=== PATIENT | female | born 1965 | race Caucasian/White ===

== ENCOUNTER 2016-06-18 18:31 | Observation (INO) ==
--- NOTE | 2016-06-18 19:26 | Emergency Department Note ---
Disposition Clinical Impression: Anemia Disposition: Admitted As Inpatient Condition: Critical General Adult HPI - General Chief complaint: ED Recheck/Abnormal Lab/Rx Stated complaint: Low Hgb Time Seen by Provider: 06/18/16 18:55 Source: patient Limitations: no limitations Nursing Notes Reviewed: Yes Vital Signs Reviewed: Yes - History of Present Illness HPI Narrative: Mrs. Rodgers, 50-year-old female, presents from home by POV with chief complaint of abnormal labs. States she has low hemoglobin. Past medical history of end- stage renal disease on peritoneal dialysis. Patient also has a fistula in her left [place] left over from traditional dialysis prior to her current peritoneal regimen. Patient denies fever, chills, nausea, vomiting, chest pains , palpitations, abdominal pain, difficulty with urination, changes in bowel or bladder. She does admit to generalized weakness, increased fatigue, dyspnea with exertion. Past medical history: End-stage renal disease on peritoneal dialysis, hypertension, hyperlipidemia. 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 Pain Scale: 4 - Related Data Allergies Allergy/AdvReac Type Severity Reaction Status Date / Time diphenhydramine Allergy Unconscious Verified 06/18/16 21:16 [From Benadryl] All systems ED: reviewed and negative except as stated. Constitutional: Reports: weakness. Denies: fever, chills Cardiovascular: Reports: dyspnea on exertion. Denies: chest pain, palpitations , orthopnea, syncope Respiratory: Reports: dyspnea. Denies: cough, wheezes, hemoptysis, stridor Gastrointestinal: Denies: abdominal pain, nausea, vomiting, diarrhea, constipation, hematemesis, melena, hematochezia Genitourinary: Denies: urgency, dysuria, frequency Musculoskeletal: Denies: back pain Integumentary: Denies: rash Neurological: Reports: weakness. Denies: headache, numbness, paresthesias, confusion, abnormal gait, vertigo Past Medical History - Past Medical History Medical history: Reports: asthma, dialysis, GERD, hypertension, renal disease Psychiatric history: Reports: no psych history - Social History Smoking Status: Never smoker Smokeless Tobacco Status: No Alcohol use: Reports: none Drug use: Reports: none Physical Exam Vital signs reviewed and are stable. General: Patient is alert, oriented, and in no acute distress. Patient appears older than stated age. HEENT: No facial asymmetry. Head is normocephalic and atraumatic. Trachea midline. Cardiovascular: Heart regular rate and rhythm without clicks, rubs, gallops, or murmurs. No JVD. PMI nondisplaced. No pedal edema. Respiratory: Symmetric chest rise with good respiratory effort. Bilateral breath sounds are clear without wheezing, crackles, or rhonchi. Abdomen: Obese. Bowel sounds present normoactive x-4 quadrants. Abdomen is soft, nondistended, and nontender. Psych: Patient's affect is appropriate for situation. - General Limitations: no limitations General appearance: alert, in no apparent distress Course Course Narrative: We will repeat basic lab work with the addition of type and screen. Patient is able to 6.5. She will require 2 units transfusion. We will admit her for transfusion. Spoke with the patient's wax molder who agrees on the management of transfusion. Spoke with the hospitalist, Dr. Corrales, who agrees to accept the patient. Vital Signs Temperature 98.1 F 06/18/16 18:47 Pulse Rate 63 06/18/16 18:47 Respiratory Rate 16 06/18/16 18:47 Blood Pressure 127/89 06/18/16 18:47 O2 Sat by Pulse Oximetry 99 06/18/16 18:47 Temperature 98.1 F 06/18/16 21:47 Pulse Rate 72 06/18/16 21:45 Respiratory Rate 18 06/18/16 21:49 Blood Pressure 143/84 06/18/16 21:49 O2 Sat by Pulse Oximetry 96 06/18/16 21:45 Oxygen Delivery Oxygen Delivery Room Air Medical Decision Making - Lab Data Result diagrams: 06/18/16 19:29 06/18/16 19:29 Lab Results 06/18/16 06/18/16 06/18/16 Range/Units 19:29 19:29 19:29 WBC 7.6 (4.3-11.1) K/mcL RBC 2.02 L (3.82-4.97) M/mcL Hgb 6.5 L (11.5-15.4) g/dL Hct 19.8 L (35.3-44.9) % MCV 98.0 (83.0-100.0) fL MCH 32.2 (28.0-33.3) pg MCHC 32.8 (31.6-35.5) g/dL RDW 12.5 (11.5-14.5) % Plt Count 179 (140-400) K/mcL MPV 12.0 (9.4-12.4) fL Immature Gran % 0.7 (0-4) % Seg Neutrophils % 72.1 % Lymphocytes % 16.9 % Monocytes % 7.9 % Eosinophils % 2.1 % Basophils % 0.3 % Neutrophils # 5.5 (1.6-8.9) K/mcL Lymphocytes # 1.3 (0.6-4.6) K/mcL Monocytes # 0.6 (0.0-1.3) K/mcL Eosinophils # 0.2 (0.0-0.6) K/mcL Basophils # 0.0 (0.0-0.2) K/mcL Sodium 139 (136-145) mEq/L Potassium 3.7 (3.5-4.5) mEq/L Chloride 108 (98-109) mEq/L Carbon Dioxide 10 L* (19-29) mEq/L BUN 110 H (7-20) mg/dL Creatinine 18.84 H (0.57-1.11) mg/dL Est GFR ( Amer) 2 L (> 60) Est GFR (Non-Af Amer) 2 L (> 60) BUN/Creatinine Ratio 6 (6-26) Glucose 105 H (70-99) mg/dL Calculated Osmolality 323 H (280-300) Calcium 9.6 (8.6-10.8) mg/dL Troponin I (0-0.03) ng/mL Blood Type O POSITIVE Antibody Screen NEGATIVE Crossmatch See Detail 06/18/16 Range/Units 19:29 WBC (4.3-11.1) K/mcL RBC (3.82-4.97) M/mcL Hgb (11.5-15.4) g/dL Hct (35.3-44.9) % MCV (83.0-100.0) fL MCH (28.0-33.3) pg MCHC (31.6-35.5) g/dL RDW (11.5-14.5) % Plt Count (140-400) K/mcL MPV (9.4-12.4) fL Immature Gran % (0-4) % Seg Neutrophils % % Lymphocytes % % Monocytes % % Eosinophils % % Basophils % % Neutrophils # (1.6-8.9) K/mcL Lymphocytes # (0.6-4.6) K/mcL Monocytes # (0.0-1.3) K/mcL Eosinophils # (0.0-0.6) K/mcL Basophils # (0.0-0.2) K/mcL Sodium (136-145) mEq/L Potassium (3.5-4.5) mEq/L Chloride (98-109) mEq/L Carbon Dioxide (19-29) mEq/L BUN (7-20) mg/dL Creatinine (0.57-1.11) mg/dL Est GFR ( Amer) (> 60) Est GFR (Non-Af Amer) (> 60) BUN/Creatinine Ratio (6-26) Glucose (70-99) mg/dL Calculated Osmolality (280-300) Calcium (8.6-10.8) mg/dL Troponin I 0.04 H* (0-0.03) ng/mL Blood Type Antibody Screen Crossmatch
[2016-06-18 19:35] LABS: Basophils % 0.3 %; Eosinophils # 0.2 K/mcL (0.0-0.6); Eosinophils % 2.1 %; Hematocrit 19.8 % (35.3-44.9); Hemoglobin 6.5 g/dL (11.5-15.4); Immature Granulocytes % 0.7 % (0-4); Lymphocytes # 1.3 K/mcL (0.6-4.6); Lymphocytes % 16.9 %; Mean Corpuscular HGB Conc 32.8 g/dL (31.6-35.5); Mean Corpuscular Hemoglobin 32.2 pg (28.0-33.3); Monocytes # 0.6 K/mcL (0.0-1.3); Monocytes % 7.9 %; Neutrophils # 5.5 K/mcL (1.6-8.9); Platelet Count 179 K/mcL (140-400); Red Blood Count 2.02 M/mcL (3.82-4.97); Red Cell Distribution Width 12.5 % (11.5-14.5); Segmented Neutrophils % 72.1 %
[2016-06-18 19:48] LABS: Calcium 9.6 mg/dL (8.6-10.8); Potassium 3.7 mEq/L (3.5-4.5)
[2016-06-18] MEDS ORDERED: 0.9 % Sodium Chloride 250 ML ONE (21:06)
[2016-06-18] MEDS ORDERED: *HR* Morphine 2 MG/ML SYRINGE IVP PRN (21:49)
[2016-06-18] MEDS ORDERED: Naloxone 0.4 MG/ML INJ IVP PRN (21:49)
[2016-06-18] MEDS ORDERED: *HR* Promethazine 25 MG/ML VIAL IVP PRN (21:49)
[2016-06-18] MEDS ORDERED: Acetaminophen 325 MG TABLET PO PRN (21:49)
[2016-06-18] MEDS ORDERED: *HR* OxyCODONE Immed Rel 5 MG TABLET PO PRN (21:49)
[2016-06-18] MEDS ORDERED: Benzonatate 100 MG CAPSULE PO PRN (22:01)
[2016-06-19] MEDS ORDERED: 0.9 % Sodium Chloride 250 ML ONE (00:23)
[2016-06-19 03:26] VITALS: BP 144/81
--- NOTE | 2016-06-19 03:39 | Internal Med History&Physical ---
Date of Encounter: 06/18/16 Time of Encounter: 22:00 Assessment and Plan (1) Symptomatic anemia Status: Acute . (2) ESRD on peritoneal dialysis Status: Acute . (3) Anemia in ESRD (end-stage renal disease) Status: Acute . (4) Weakness generalized Status: Acute . (5) Metabolic acidosis with increased anion gap and accumulation of organic acids Status: Acute . (6) H/O kidney transplant Status: Chronic . (7) Type II diabetes mellitus Status: Chronic . Qualifiers: Diabetes mellitus complication status: with kidney complications Diabetes mellitus complication detail: with other kidney complication Diabetes mellitus chcf insulin use: unspecified chcf insulin use status Qualified Code(s): E11.29 - Type 2 diabetes mellitus with other diabetic kidney complication (8) Hypothyroidism Status: Chronic . Qualifiers: Hypothyroidism type: acquired Qualified Code(s): E03.9 - Hypothyroidism, unspecified (9) Obesity (BMI 30-39.9) Status: Chronic . (10) Hypertension Status: Chronic . Qualifiers: Hypertension type: essential hypertension Qualified Code(s): I10 - Essential (primary) hypertension (11) Dysfunctional uterine bleeding Status: Chronic . (12) Iron deficiency Status: Chronic . (13) Hyperosmolality due to uncontrolled type 1 diabetes mellitus Status: Chronic . Internal Medicine - H&P: HPI Chief complaint: Generalized weakness. Low hemoglobin. Admitted From: Emergency Dept Plans for Post Hospital Care: Home History of present illness: Ms. Rodgers is a 50 year old female with history significant for ESRD-peritoneal dialysis dependent, hypertension, type II DM, dyslipidemia, RAD/asthma, osteoathritis, osteopenia, GERD, hypothyroidism, DUB, anemia of chr dis, obesity , nonsmoker The patient was visited and interviewed and examined. Patient is admitted to [facility] via the emergency department she presents with reports of recently obtained laboratory studies showing a very low hemoglobin. She denies any symptomatic limitations or concerns. Is currently on traditional peritoneal dialysis and end-stage renal disease. He was instructed to come to the ED for evaluation and transfusion therapy. Findings in the ED: 98.1 pulse 60-74 respirations 16-18 BP 120-130/90. O2 saturation 97-99% room air. WBC 7.6 hemoglobin 6.5 hematocrit 19.8. Platelet count 179,000. Differential normal. Metabolic panel carbon dioxide 10 BUN 110 creatinine 18.84. GFR 2. Glucose 105 osmolality 323. PT 11.8 INR 1.1 PTT 40.1. Venous blood gas pH 7.49 PCO2 9 PCO2 [address] abdomen and pelvis demonstrates no acute intra-abdominal or intrapelvic process. Severely atrophy of [place] kidneys with right lower quadrant transplant kidney. No obvious CT scan abnormality of right lower quadrant transplant kidney identified. Peritoneal dialysis catheter noted. Advanced liver or spleen pancreas adrenal glands within normal limits. No free air or free fluid identified. Opacified small bowel grossly unremarkable. Obvious lymphadenopathy. Aorta normal in caliber with minor atherosclerotic calcifications. Uterus and adnexal structures grossly unremarkable. No acute osseous abnormalities identified. Preliminary impression suggest traumatic acute blood loss (dysfunctional uterine bleeding) on chronic anemia due to ESRD. Patient presents with impressive azotemia and metabolic acidosis inspite her claims of adherence to rule out daily continuous peritoneal dialysis. Reports by the patient treatment compliance cannot be validated. Further her claims of compliance with Aranesp therapy and periodic iron infusions cannot be validated. Her immediate needs will be addressed. Consultation will be requested of her nephrology team further input in her ongoing care. He should presents further risk for acute clinical decline and morbidity given this presenting sedative concerns and comorbidities. Workup and treatment will progress comprehensively. Cumulative laboratory and radiographic data base was reviewed, considered and discussed. Pertinent ancillary medical records including ECW and PCI documentation was reviewed and considered. Given the patient's presenting concerns, past medical history, clinical findings and symptoms, she is admitted at this time will undergo further evaluation and disposition. Orders were written as per the computerized physician food and beverage order clerk system.......................................................................... .................... Consultative opinions wwill be sought as clinical circumstances justify. Initial consultative opinion has been requested of nephrology/dialysis team. Pain management needs will be addressed. Laboratory and radiographic data base will be updated as appropriate. Studies include: Cultures of blood sputum, cardiac injury panel, BNP, pt, inr,aptt, metabolic and hematologic panel, magnesium, phosphorus, ionized calcium, thyroid panel ,lipid profile, A1c, C-peptide, CRP, sedimentation rate, blood gas , lactic acid, iron studies, B12, folate, UA, serologies, etc. Precautions: Aspiration, fall, delirium protocol/surveillance initiated. Telemetry with continuous hemodynamic monitoring and pulse oximetry initiated. Orthostatic vital signs. Type and cross for 2 units of packed red blood cells. Patient to be transfused to achieve a hemoglobin of 10. Empiric antibody coverage: Intravenous Rocephin and azithromycin pending culture data. Special studies: CT abd/pelvis, chest x-ray, telemetry, EKG. Pulmonary toilet: Incentive spirometry. Aerosol bronchodilator, mucolytic, antitussivePRN. Supplemental oxygen. Corticosteroid therapyPRN. CPAP/BiPAP supplemental oxygen deliveryPRN. Aerosol Mucomyst therapyPRN. Fluid and electrolyte repletion efforts will proceed. Careful attention to fluid balance and renal recovery will be emphasized. Avoidance of nephrotoxic exposure and adverse drug drug interaction in the setting of impaired renal function will be monitored closely. Acute coronary syndrome protocol/surveillance initiated. DVT and PUD prophylaxis initiated: PPI therapy, intermittent pneumatic cuffs. Subcutaneous heparin. Early ambulation will be encouraged. Immunization updates recommended. Influenza and pneumococcal vaccinations as part of ongoing preventative healthcare recommendations strongly recommended. Smoking cessation counseling briefly addressed. Patient is a nonsmoker. Advanced care directive discussion briefly addressed. Patient does not declare any healthcare restrictions at this time. Cardiovascular risk appraisal and cardiovascular risk reduction efforts will be emphasized. Physical and occupational therapy may be counseled to evaluate patient's functional capacity and progress mobility if her circumstances justify. Sliding scale insulin coverage, ADA/RENAL dietary restraint and schedule an as- needed basis fingerstick glucose assessments were initiated. Nutrition/ diabetes education counseling may be considered as circumstances justify. Outpatient medication schedules will be reviewed, confirmed and facilitated as appropriate. Reconciliation of home treatments including adjustments, substitutions and reintroduction into the treatment regimen will address necessary maintenance therapies for chronic pre-existing medical conditions. Plan of care has been reviewed and discussed in detail with the patient. Questions addressed. Hospital course dictated by clinical findings, treatment response and potential consultative interventions. Patient is at risk for further acute clinical decline and morbidity due to her presenting chief complaints and comorbid conditions. Condition is serious. Prognosis is guarded. CODE STATUS is full. Past Med Surg Social Fam HX - Past Medical History Source: old records reviewed Medical history: arthritis, asthma, diabetes, dialysis, GERD, hypertension, osteoporosis, renal disease, thyroid disease, other (Dysfunctional uterine bleeding. Anemia of chronic disease.) Psychiatric history: no psych history - Past Surgical History Surgical History: appendectomy, transplant (kidney), other, vascular surgery ( AV fistula placement. Peritoneal dialysis port placement.) - Social History Smoking Status: Never smoker Smokeless Tobacco Status: No Alcohol use: none Drug use: none Occupational status: unemployed Current living situation: With Family Activity Level: Independent ambulation, Mostly sedentary Recent Out of Country Travel Within the Last 8 Weeks: No Exposure or Possible Exposure to Illness During Travel: No Internal Medicine - H&P: Meds Aspirin [Lo-Dose Aspirin EC] 81 mg PO DAILY 06/19/16 [History] Ergocalciferol (VITAMIN D2) [Vitamin D2] 50,000 unit PO QWEEK 06/19/16 [History] Gemfibrozil [Lopid] 600 mg PO BID 06/19/16 [History] Omeprazole [PriLOSEC] 40 mg PO BID 06/19/16 [History] Ondansetron HCl [Zofran] 4 mg PO Q8H PRN 06/19/16 [History] Simvastatin [Zocor] 40 mg PO DAILY 06/19/16 [History] Sodium Bicarbonate 1,950 mg PO BID 06/19/16 [History] Allergies diphenhydramine [From Benadryl] Allergy (Verified 06/18/16 21:16) Unconscious patient states IV benadryl. All Systems PM: A 10-system review of systems was performed and is negative for pertinent findings except as documented above in the HPI. - Constitutional Constitutional: as per HPI, fatigue, malaise, weakness, no chills, no fever(s), no night sweats - EENT Eyes: as per HPI, no change in vision, no discharge, no pain, no photophobia Ears: as per HPI, no ear discharge, no ear pain, no tinnitus Nose, mouth and throat: as per HPI, no dysphagia, no nasal discharge, no neck pain, no sore throat - Cardiovascular Cardiovascular ROS IM: as per HPI, no chest pain, no diaphoresis, no dyspnea, no lightheadedness, no palpitations, no syncope - Respiratory Respiratory: as per HPI, dyspnea, dyspnea on exertion, no cough, no wheezing, no excessive phlegm production - Gastrointestinal Gastrointestinal: as per HPI, no abdominal pain, no diarrhea, no hematemesis, no hematochezia, no melena, no nausea, no vomiting - Genitourinary Genitourinary: as per HPI, no change in urinary stream, no dysuria, no flank pain, no hematuria Menstruation: as per HPI, other - Musculoskeletal Musculoskeletal ROS IM: as per HPI, no numbness, no tingling - Integumentary Integumentary IM: as per HPI, no rash, no unusual bruising - Neurological Neurological ROS: as per HPI, no confusion, no convulsions, no focal weakness, no numbness, no tingling, no tremor(s) - Psychiatric Psychiatric: as per HPI - Endocrine Endocrine IM: as per HPI - Hematologic/Lymphatic Hematologic/Lymphatic: as per HPI, no easy bruising - Allergic/Immunologic Allergic/Immunologic: as per HPI - Constitutional Vitals: Temp Pulse Resp BP Pulse Ox 97.8 F 75 16 144/81 92 L 06/19/16 03:10 06/19/16 03:10 06/19/16 03:10 06/19/16 03:10 06/19/16 03:05 General appearance: Present: cooperative, A&O X 3, no acute distress, obese, answers questions appropriately - Head Head exam: Present: atraumatic, normocephalic - Eye Eye exam: Present: EOMI, PERRL, conjuntiva pink, sclera anicteric Pupils: Present: normal accommodation, PERRL - ENT ENT exam: Present: mucous membranes moist, normal oropharynx - Neck Neck exam general surgery: Present: full ROM, supple, trachea midline. Absent: lymphadenopathy - Respiratory Respiratory exam: Present: decreased breath sounds, CTAB. Absent: accessory muscle use, rales, rhonchi, wheezes - Cardiovascular Cardiovascular exam: Present: distant heart sounds, RRR, +S1, +S2. Absent: diastolic murmur, gallop, rubs, systolic murmur - GI/Abdominal GI/Abdominal exam: Present: normal bowel sounds, soft, no peritoneal signs. Absent: distended, tenderness - Extremities Exam Extremities exam: Present: full ROM, warm, radial pulses palpable and symetrical. Absent: calf tenderness, cyanotic, pedal edema - Neurological Exam Neurological exam: Present: alert, CN II-XII intact, oriented X3, no focal deficits. Absent: pronater drift, facial droop, speech deficit - Psychiatric Psychiatric exam: Present: normal affect, normal mood - Skin Skin exam: Present: dry, intact, warm Internal Med - H&P Results - Labs CBC & Chem 7: 06/19/16 06:11 06/19/16 06:11 - Impressions Vital Signs Temp Pulse Resp BP Pulse Ox 06/19/16 03:10 97.8 F 75 16 144/81 06/19/16 03:05 97.8 F 66 18 144/81 92 L 06/19/16 01:07 98.4 F 68 18 120/79 95 06/19/16 00:43 98.4 F 68 16 120/79 06/19/16 00:33 98.2 F 61 16 124/76 06/19/16 00:31 98.2 F 61 18 96 06/18/16 23:22 98.2 F 61 18 124/76 96 06/18/16 21:49 18 143/84 06/18/16 21:47 98.1 F 06/18/16 21:45 72 18 138/83 96 06/18/16 21:40 70 18 139/85 06/18/16 21:32 98.4 F 65 18 139/89 06/18/16 20:12 74 18 130/90 97 06/18/16 18:47 98.1 F 63 16 127/89 99 Intake and Output 06/18/16 06/18/16 06/19/16 15:59 23:59 07:59 Intake Total 0 / 0 900 / 900 Balance 0 / 0 900 / 900 Intake: Blood Product 0 / 0 900 / 900 Rbcs Leuko Poor As-1 0 / 0 300 / 300 Unit [id number] Rbcs Leuko Poor As-1 600 / 600 Unit [id number] Other: Weight 94.2 kg 93.894 kg Patient Weight 06/19/16 23:59 Weight 93.894 kg Short CBC 06/18/16 Range/Units 19:29 WBC 7.6 (4.3-11.1) K/mcL Hgb 6.5 L (11.5-15.4) g/dL Hct 19.8 L (35.3-44.9) % Plt Count 179 (140-400) K/mcL Neutrophils # 5.5 (1.6-8.9) K/mcL BMP 06/18/16 Range/Units 19:29 Sodium 139 (136-145) mEq/L Potassium 3.7 (3.5-4.5) mEq/L Chloride 108 (98-109) mEq/L Carbon Dioxide 10 L* (19-29) mEq/L BUN 110 H (7-20) mg/dL Creatinine 18.84 H (0.57-1.11) mg/dL Glucose 105 H (70-99) mg/dL Calcium 9.6 (8.6-10.8) mg/dL Cardiac Enzymes 06/18/16 Range/Units 19:29 Troponin I 0.04 H* (0-0.03) ng/mL Abnormal lab results RBC 2.02 M/mcL (3.82-4.97) L 06/18/16 19:29 Hgb 6.5 g/dL (11.5-15.4) L 06/18/16 19:29 Hct 19.8 % (35.3-44.9) L 06/18/16 19:29 Carbon Dioxide 10 mEq/L (19-29) L* 06/18/16 19:29 BUN 110 mg/dL (7-20) H 06/18/16 19:29 Creatinine 18.84 mg/dL (0.57-1.11) H 06/18/16 19:29 Est GFR ( Amer) 2 (> 60) L 06/18/16 19:29 Est GFR (Non-Af Amer) 2 (> 60) L 06/18/16 19:29 Glucose 105 mg/dL (70-99) H 06/18/16 19:29 Calculated Osmolality 323 (280-300) H 06/18/16 19:29 Troponin I 0.04 ng/mL (0-0.03) H* 06/18/16 19:29 Allergies Allergy/AdvReac Type Severity Reaction Status Date / Time diphenhydramine Allergy Unconscious Verified 06/18/16 21:16 [From Benadryl] Laboratory Results WBC 7.6 K/mcL (4.3-11.1) 06/18/16 19:29 RBC 2.02 M/mcL (3.82-4.97) L 06/18/16 19:29 Hgb 6.5 g/dL (11.5-15.4) L 06/18/16 19:29 Hct 19.8 % (35.3-44.9) L 06/18/16 19:29 MCV 98.0 fL (83.0-100.0) 06/18/16 19:29 MCH 32.2 pg (28.0-33.3) 06/18/16 19: MCHC 32.8 g/dL (31.6-35.5) 06/18/16 19: RDW 12.5 % (11.5-14.5) 06/18/16 19:29 Plt Count 179 K/mcL (140-400) 06/18/16 19: MPV 12.0 fL (9.4-12.4) 06/18/16 19: Immature Gran % 0.7 % (0-4) 06/18/16 19: Seg Neutrophils % 72.1 % 06/18/16 19: Lymphocytes % 16.9 % 06/18/16 19:29 Monocytes % 7.9 % 06/18/16 19:29 Eosinophils % 2.1 % 06/18/16 19: Basophils % 0.3 % 06/18/16 19:29 Neutrophils # 5.5 K/mcL (1.6-8.9) 06/18/16 19: Lymphocytes # 1.3 K/mcL (0.6-4.6) 06/18/16 19: Monocytes # 0.6 K/mcL (0.0-1.3) 06/18/16 19: Eosinophils # 0.2 K/mcL (0.0-0.6) 06/18/16 19:29 Basophils # 0.0 K/mcL (0.0-0.2) 06/18/16 19:29 Sodium 139 mEq/L (136-145) 06/18/16 19:29 Potassium 3.7 mEq/L (3.5-4.5) 06/18/16 19: Chloride 108 mEq/L (98-109) 06/18/16 19:29 Carbon Dioxide 10 mEq/L (19-29) L* 06/18/16 19:29 BUN 110 mg/dL (7-20) H 06/18/16 19:29 Creatinine 18.84 mg/dL (0.57-1.11) H 06/18/16 19:29 Est GFR ( Amer) 2 (> 60) L 06/18/16 19:29 Est GFR (Non-Af Amer) 2 (> 60) L 06/18/16 19:29 BUN/Creatinine Ratio 6 (6-26) 06/18/16 19:29 Glucose 105 mg/dL (70-99) H 06/18/16 19:29 Calculated Osmolality 323 (280-300) H 06/18/16 19:29 Calcium 9.6 mg/dL (8.6-10.8) 06/18/16 19:29 Troponin I 0.04 ng/mL (0-0.03) H* 06/18/16 19:29 Blood Type O POSITIVE 06/18/16 19:29 Antibody Screen NEGATIVE 06/18/16 19:29 Crossmatch See Detail 06/18/16 19:29
[2016-06-19] MEDS: Sodium Bicarbonate 150 MEQ in D5% in Water 1,000 ML IVC SCH ×2 (03:51→10:11)
[2016-06-19] MEDS ORDERED: *HR* Heparin 5,000 UNIT/ML VIAL SQ SCH (06:00)
[2016-06-19 06:30] LABS: Hematocrit 25.5 % (35.3-44.9); Hemoglobin 8.3 g/dL (11.5-15.4)
[2016-06-19 06:38] LABS: VBG HCO3 6.9 mEq/L (21-27); VBG PH 7.49 pH Units (7.32-7.42)
[2016-06-19 06:39] LABS: INR 1.1; Prothrombin Time 11.8 Seconds (9.4-12.1)
[2016-06-19 06:42] LABS: Activated Partial Thrombo Time 40.1 Seconds (26.0-36.0)
[2016-06-19 06:48] LABS: Albumin 3.6 g/dL (3.5-5.0); Beta-Hydroxybutyric Acid 0.24 mmol/L (0.02-0.27); Bilirubin,Direct 0.2 mg/dL (0.0-0.5); Bilirubin,Indirect 0.3 mg/dL (0.0-1.2); Bilirubin,Total 0.5 mg/dL (0.2-1.2); Calcium 9.4 mg/dL (8.6-10.8); Chol/HDL Ratio 6.3 (0-4.9); Globulin 3.7 g/dL (2.4-3.5); Magnesium 2.2 mg/dL (1.6-2.6); Potassium 3.5 mEq/L (3.5-4.5); Total Protein 7.3 g/dL (6.0-8.3)
[2016-06-19 06:53] LABS: Ionized Calcium 1.18 mmol/L (1.15-1.35)
[2016-06-19 07:08] LABS: Thyroid Stimulating Hormone 2.894 mcIU/mL (0.350-4.840)
--- NOTE | 2016-06-19 13:15 | Nephrology Consult Note ---
Date of Encounter: 06/19/16 Time of Encounter: 13:11 Assessment and Plan (1) ESRD on peritoneal dialysis Current Visit: Yes Status: Acute Does not have any uremic symptoms or signs. Would like to go home today d/w Dr. Ansari, pt has been noncompliant with PD. Informed the need for doing PD as instructed. Metabolic acidosis; takes bicard supplements at home but not sure of the dose Hyperphosphatemia; phosphate binders were recently increased couple of days ago at the clinic visit Anemia of chronic disease; gets Aranesp as outpatient and the dose was increased last week. Has appointment to see GI physician in the next few days for colorectal screening She takes about 30 pills as outpatient but is not sure of the dose. [facility] pharmacy to fax her recent medical list. History of Present Illness - Reason for Consult end stage renal disease - Chief Complaint ESRD, abnormal lab values - History of Present Illness 50 years old female with history of HTN, hyperlipidemia, GERD, hypothyroidism and ESRD She was sent to ER yesterday as outpatient HB was low at 6.5. Vital signs were stable. He received 2 units of packed RBCs last night. Labs sig for BUN 110, creatinine 19 bicarbonate 9, Calcium 9.4 and phosphate level. IV bicarbonate was ordered last night but patient refused. She would like to go home today Patient was on hemodialysis for about couple of years, subsequently had renal transplant which lasted for about 5 years, lately on PD for about 2-3 years Seen in PD clinic couple of days ago. Admits to being compliant with 4 manual exchanges as prescribed. Past Med Surg Social Fam HX - Past Medical History Medical history: arthritis, asthma, diabetes (States that she does not have diabetes), dialysis, GERD, hypertension, osteoporosis, renal disease, thyroid disease, other (Dysfunctional uterine bleeding. Anemia of chronic disease.) Psychiatric history: no psych history - Past Surgical History Surgical History: appendectomy, transplant (kidney), other, vascular surgery ( AV fistula placement. Peritoneal dialysis port placement.) - Social History Smoking Status: Never smoker Smokeless Tobacco Status: No Alcohol use: none Drug use: none Current living situation: With Family (Lives with spouse and son) - Additional Family History Additional family history: Mom is healthy and doing well father had from complications of Alzheimer's dementia Medications and Allergies Aspirin [Lo-Dose Aspirin EC] 81 mg PO DAILY 06/19/16 [History] Ergocalciferol (VITAMIN D2) [Vitamin D2] 50,000 unit PO QWEEK 06/19/16 [History] Gemfibrozil [Lopid] 600 mg PO BID 06/19/16 [History] Omeprazole [PriLOSEC] 40 mg PO BID 06/19/16 [History] Ondansetron HCl [Zofran] 4 mg PO Q8H PRN 06/19/16 [History] Simvastatin [Zocor] 40 mg PO DAILY 06/19/16 [History] Sodium Bicarbonate 1,950 mg PO BID 06/19/16 [History] Allergies diphenhydramine [From Benadryl] Allergy (Verified 06/18/16 21:16) Unconscious patient states IV benadryl. Review of Systems All Systems review (narrative): Continues to make urine. Denies nausea vomiting or insomnia States that she feels pretty well, would like to go home today Exam - Vital Signs Vital signs: Initial Vital Signs Temp Pulse Resp BP Pulse Ox 98.1 F 63 16 127/89 99 06/18/16 18:47 06/18/16 18:47 06/18/16 18:47 06/18/16 18:47 06/18/16 18:47 Intake and Output 06/18/16 06/19/16 06/19/16 23:59 07:59 15:59 Intake Total 900 / 900 Balance 900 / 900 Intake: Blood Product 900 / 900 Rbcs Leuko Poor As-1 300 / 300 Unit [id number] Rbcs Leuko Poor As-1 600 / 600 Unit [id number] Other: Weight 94.2 kg 93.894 kg Patient Weight 06/19/16 23:59 Weight 93.894 kg - General Appearance Exam: HENT; PERRL, pallor present, no icterus Neck; no JVD no lymphadenopathy or carotid bruit CVS; s1s2 present, regular, no murmurs RESP; good air entry, clear to auscultation ABD; soft, NT, BS present, no organomegaly, no bruits EXT; no edema, DP pulses palpable. 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
--- NOTE | 2016-06-19 13:56 | Discharge Summary ---
Date of Encounter: 06/19/16 Time of Encounter: 13:53 - Discharge Diagnosis (1) Anemia in ESRD (end-stage renal disease) Priority: Primary Status: Acute (2) ESRD on peritoneal dialysis Priority: Secondary Status: Acute - Discharge Medications Home Medications: Aspirin [Lo-Dose Aspirin EC] 81 mg PO DAILY 06/19/16 [History] Ergocalciferol (VITAMIN D2) [Vitamin D2] 50,000 unit PO QWEEK 06/19/16 [History] Gemfibrozil [Lopid] 600 mg PO BID 06/19/16 [History] Omeprazole [PriLOSEC] 40 mg PO BID 06/19/16 [History] Ondansetron HCl [Zofran] 4 mg PO Q8H PRN 06/19/16 [History] Simvastatin [Zocor] 40 mg PO DAILY 06/19/16 [History] Sodium Bicarbonate 1,950 mg PO BID 06/19/16 [History] Allergies/Adverse Reactions: Allergies diphenhydramine [From Benadryl] Allergy (Verified 06/18/16 21:16) Unconscious patient states IV benadryl. Date of admission: 06/18/16 21:29 Primary care physician: PCP NO Consults: 06/19/16 07:00 Consult to Dialysis [CONS] ONCE 06/19/16 08:00 Consult to Physician [CONS] Routine Consulting Provider: Chadwick Ansari Reason for Consult: ESRD on peritoneal dialysis presents w/ generalized weakness and labs finding hgb 6.5 Cr 18.8 Bun 110. Please evaluate and advise. Time Notified: 21:58 Call Completed: Yes Discharging clinician: Chuck Quintero Anticipated date of discharge: 06/19/16 - Patient Status Disposition: Home, Self-Care Condition: Critical Functional capacity at discharge: independent ambulation Overall status at discharge: patient is back to baseline - Discharge Instructions Follow Up With: Unassigned,Provider [Non-Partnered Physician] - Additional Instructions: Follow up with pcp. Follow up with nephrology. Continue with peritoneal dialysis. - Diet and Activity Activity: increase activity as tolerated Diet: other (renal diet) Interval History: Mrs. Rodgers, 50-year-old female, presents from home by POV with chief complaint of abnormal labs. States she has low hemoglobin. Past medical history of end- stage renal disease on peritoneal dialysis. Patient also has a fistula in her left Robbin left over from traditional dialysis prior to her current peritoneal regimen. Patient denies fever, chills, nausea, vomiting, chest pains , palpitations, abdominal pain, difficulty with urination, changes in bowel or bladder. She does admit to generalized weakness, increased fatigue, dyspnea with exertion. Past medical history: End-stage renal disease on peritoneal dialysis, hypertension, hyperlipidemia. Hospital course: Ms. Rodgers is a 50 year old female admitted due to severe symptomatic anemia in setting of a patient with underlying ESRD on PD. She received 2 units of prbc overnight and is feeling better. No signs of fluid overload, no hyperkalemia, no pneumonia. No signs of infection. Evaluated by nephrology. 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 She has mild elevation of cardiac biomarkers, without chest pain. No ACS. likely elevation of trops in setting of anemia and ESRD. She has prescriptions for home meds including sodium bicarb pills. D/W patient. She voiced her desire of going home and was even told that she could go home after the transfusion. Patient will be discharged home and will continue with her home meds. - Time Spent with Patient Total time spent providing and/or coordinating discharge services: Greater than 30 minutes - Constitutional Vitals: Temp Pulse Resp BP Pulse Ox 97.8 F 75 16 144/81 92 L 06/19/16 03:10 06/19/16 03:10 06/19/16 03:10 06/19/16 03:10 06/19/16 03:05 General appearance: Present: cooperative, A&O X 3, no acute distress, obese, answers questions appropriately Exam: alert, oriented, not in distress. - Head Head exam: Present: atraumatic, normocephalic - Eye Eye exam: Present: PERRL, conjuntiva pink, sclera anicteric Pupils: Present: PERRL - Neck Neck exam general surgery: Present: supple, trachea midline. Absent: lymphadenopathy - Respiratory Respiratory exam: Present: CTAB. Absent: accessory muscle use, rales, rhonchi, wheezes - Cardiovascular Cardiovascular exam: Present: RRR, +S1, +S2. Absent: diastolic murmur, gallop, rubs, systolic murmur - GI/Abdominal GI/Abdominal exam: Present: normal bowel sounds, soft, no peritoneal signs. Absent: distended, tenderness - Extremities Exam Extremities exam: Present: warm, radial pulses palpable and symetrical. Absent : calf tenderness, cyanotic, pedal edema - Neurological Exam Neurological exam: Present: CN II-XII intact, oriented X3, no focal deficits. Absent: pronater drift, facial droop, speech deficit - Skin Skin exam: Present: dry, intact
== END 2016-06-19 14:41 | disposition home or self-care (01) ==
LOC: 2ANU 18:31 → EMEROO 18:31 → 2ANU 22:35
PROVIDERS: ADMIT Family Medicine; ATTEND Internal Medicine

== ENCOUNTER 2018-07-31 13:22 | Inpatient (IN) ==
--- NOTE | 2018-07-31 14:27 | Emergency Department Note ---
Disposition Clinical Impression: Acute kidney injury superimposed on chronic kidney disease, Uremia Anemia Qualifiers: Anemia type: unspecified type Qualified Code(s): D64.9 - Anemia, unspecified Disposition: Admitted As Inpatient Condition: Fair Referrals: NONE,PCP [Primary Care Provider] - Forms: ED Satisfaction Letter, Work/School Release Time of Disposition: 15:40 General Adult HPI - General Chief complaint: ED General Medical Stated complaint: Needs Port Time Seen by Provider: 07/31/18 13:32 Source: patient Mode of arrival: ambulatory Limitations: no limitations Nursing Notes Reviewed: Yes Vital Signs Reviewed: Yes - History of Present Illness HPI Narrative: 52-year-old female with history of hypertension, end-stage renal disease currently on PD presents for evaluation from the dialysis clinic for concerns of uremia. Patient was seen in for admission for permacath placement HD. Patient follows Dr. Booker carrasquillo. Patient states she has had a cough but denying any chest pain or dyspnea. Patient has abdominal pain or nausea vomiting. Patient states she does produce some urine. No fevers. Patient states that she is alternated between HD and PD in the past. Pain Scale: 5 - Related Data Home Medications Medication Instructions Recorded Confirmed Aspirin [Lo-Dose Aspirin EC] 81 mg PO DAILY 06/19/16 07/31/18 Gemfibrozil [Lopid] 600 mg PO BID 06/19/16 07/31/18 Omeprazole [PriLOSEC] 40 mg PO BID 06/19/16 07/31/18 Simvastatin [Zocor] 40 mg PO DAILY 06/19/16 07/31/18 Sodium Bicarbonate 1,950 mg PO BID 06/19/16 07/31/18 amLODIPine [Norvasc] 5 mg PO BID 07/21/18 07/31/18 hydrALAZINE [HydrALAZINE] 25 mg PO BID 07/21/18 07/31/18 Albuterol Sulfate [Albuterol 0 puff IH Q4HR PRN 07/31/18 07/31/18 Inhaler] Budesonide/Formoterol 80/4.5 2 puff IH BID 07/31/18 07/31/18 [Symbicort 80/4.5] Calcium Carbonate [Tums] 1,500 mg PO TIDWM 07/31/18 07/31/18 Cholecalciferol (D-3) [Vitamin D] 5,000 unit PO QWEEK 07/31/18 07/31/18 Cinacalcet HCl [Sensipar] 60 mg PO DAILY 07/31/18 07/31/18 Dicyclomine [Bentyl] 10 mg PO TID 07/31/18 07/31/18 FLUoxetine HCl [Prozac] 40 mg PO DAILY 07/31/18 07/31/18 Furosemide [Lasix] 40 mg PO DAILY 07/31/18 07/31/18 Levothyroxine [Synthroid] 88 mcg PO 0630 07/31/18 07/31/18 Metoclopramide [Reglan] 10 mg PO TID 07/31/18 07/31/18 Metoprolol Succinate [Toprol Xl] 25 mg PO DAILY 07/31/18 07/31/18 Sucralfate [Carafate] 1 gm PO TIDAC 07/31/18 07/31/18 Vitamin B Complex [Balanced B-50] 1 each PO DAILY 07/31/18 07/31/18 Allergies Allergy/AdvReac Type Severity Reaction Status Date / Time diphenhydramine Allergy Unconscious Verified 07/31/18 13:43 [From Benadryl] All systems ED: reviewed and negative except as stated. Constitutional: Denies: fever Cardiovascular: Denies: chest pain Respiratory: Reports: cough. Denies: dyspnea Gastrointestinal: Denies: abdominal pain, nausea, vomiting Past Medical History - Past Medical History Source: patient Medical history: Reports: arthritis, asthma, diabetes, dialysis, GERD, hypertension, osteoporosis, renal disease, thyroid disease, other Surgical history: Reports: appendectomy, transplant, other, vascular surgery Psychiatric history: Reports: no psych history - Social History Smoking Status: Never smoker Smokeless Tobacco Status: No Alcohol use: Reports: none Drug use: Reports: none Physical Exam - General Limitations: no limitations General appearance: alert, in no apparent distress - Head Head exam: atraumatic, normocephalic, normal inspection - Eye Eye exam: Present: normal appearance, PERRL, EOMI - ENT ENT exam: normal exam - Neck Neck exam: Present: normal inspection - Chest Chest inspection: Present: normal inspection, symmetric chest wall rise - Respiratory Respiratory exam: Present: wheezes. Absent: respiratory distress, accessory muscle use - Cardiovascular Cardiovascular exam: Present: regular rate, normal rhythm. Absent: systolic murmur - Abdominal Exam Abdominal exam: Present: soft, Non-Tender. Absent: guarding, rebound - Extremities Exam Extremities exam: Present: normal inspection, pedal edema (2) - Back Exam Back exam: Present: normal inspection - Neurological Exam Neurological exam: Present: alert, oriented X3, CN II-XII intact - Expanded Neurological Exam Patient oriented to: Present: person, place, time Motor strength - LUE: 5/5 Motor strength - RUE: 5/5 Motor strength - LLE: 5/5 Motor strength - RLE: 5/5 Coma Scale Eye Opening: Spontaneous Coma Scale Motor Response: Obeys Commands Coma Scale Verbal Response: Oriented Coma Scale Total: 15 - Skin Skin exam: Present: warm, dry, intact, normal color Course Course Narrative: Patient will get basic labs, urinalysis, chest x-ray and admission with IR consult and nephrology consult. - Consultations Consultation #1: Spoke with IR regarding permacath Time: 14:57 Vital Signs Temperature 98.0 F 07/31/18 13:43 Pulse Rate 91 07/31/18 13:43 Respiratory Rate 15 07/31/18 13:43 Blood Pressure 160/97 07/31/18 13:43 O2 Sat by Pulse Oximetry 94 07/31/18 13:43 Temperature 98.0 F 07/31/18 13:43 Pulse Rate 91 07/31/18 13:43 Respiratory Rate 15 07/31/18 13:43 Blood Pressure 160/97 07/31/18 13:43 O2 Sat by Pulse Oximetry 94 07/31/18 13:43 Oxygen Delivery Oxygen Delivery Room Air Medical Decision Making - [facility] Narrative Medical decision making narrative: Patient presented for concerns of worsening kidney disease. Patient does not meet criteria for emergent dialysis. IR is aware the patient's need for line placement. Patient did get basic labs. Did discuss the case with nephrology will also follow the patient. Patient's abdomen is nontender. Low concerns for any SBP. Patient's chest x-rays clinically unremarkable. - Lab Data Lab results reviewed: Yes I reviewed the patient's lab results. Result diagrams: 07/31/18 14:37 07/31/18 14:04 Lab Results 07/31/18 07/31/18 07/31/18 Range/Units 14:04 14:05 14:19 WBC (4.3-11.1) K/mcL RBC (3.82-4.97) M/mcL Hgb (11.5-15.4) g/dL Hct (35.3-44.9) % MCV (83.0-100.0) fL MCH (28.0-33.3) pg MCHC (31.6-35.5) g/dL RDW (11.5-14.5) % Plt Count (140-400) K/mcL MPV (9.4-12.4) fL Immature Gran % (0-4) % Seg Neutrophils % % Lymphocytes % % Monocytes % % Eosinophils % % Basophils % % Neutrophils # (1.6-8.9) K/mcL Lymphocytes # (0.6-4.6) K/mcL Monocytes # (0.0-1.3) K/mcL Eosinophils # (0.0-0.6) K/mcL Basophils # (0.0-0.2) K/mcL PT 12.7 H (9.4-12.1) Seconds INR 1.1 Sodium 143 (136-145) mEq/L Potassium 4.2 (3.5-5.1) mEq/L Chloride 96 L (98-107) mEq/L Carbon Dioxide 23 (23-29) mEq/L BUN 81 H (6-20) mg/dL Creatinine 19.09 H (0.60-1.20) mg/dL Est GFR ( Amer) 2 L (> 60) Est GFR (Non-Af Amer) 2 L (> 60) BUN/Creatinine Ratio 4 L (6-26) Glucose 109 H (70-105) mg/dL Calculated Osmolality 321 H (280-300) Lactic Acid (0.5-2.2) mmol/L Calcium 7.9 L (8.6-10.3) mg/dL Phosphorus 12.9 H (2.7-4.5) mg/dL Magnesium 2.0 (1.6-2.6) mg/dL Total Bilirubin 0.4 (0.3-1.0) mg/dL Direct Bilirubin 0.0 (0.0-0.2) mg/dL Indirect Bilirubin 0.4 (0.0-1.2) mg/dL AST 18 (13-39) Units/L ALT 15 (7-52) Units/L Alkaline Phosphatase 75 (34-104) Units/L Serum Total Protein 6.6 (6.4-8.9) g/dL Albumin 3.8 (3.5-5.7) g/dL Globulin 2.8 (2.4-3.5) g/dL Albumin/Globulin Ratio 1.4 (1.1-2.2) Lipase 37 (11-82) Units/L Urine Color (Yellow) Urine Clarity (Clear) Urine pH (5.0-8.0) pH Units Ur Specific [place] (1.010-1.025) Urine Protein (Neg-Trace) mg/dL Urine Glucose (UA) (Normal) mg/dL Urine Ketones (Negative) mg/dL Urine Blood (Negative) Urine Nitrite (Negative) Urine Bilirubin (Negative) Urine Urobilinogen (Normal) mg/dL Ur Leukocyte Esterase (Negative) Urine Microscopic RBC (0-3) per hpf Urine Microscopic WBC (0-3) per hpf Ur Squamous Epith Cells (None-Few) per lpf Urine Bacteria (None-Few) per hpf Hyaline Casts (None-Few) per lpf Ur Culture Indicated? (NO) 07/31/18 07/31/18 07/31/18 Range/Units 14:27 14:37 14:46 WBC 6.3 (4.3-11.1) K/mcL RBC 2.39 L (3.82-4.97) M/mcL Hgb 7.5 L (11.5-15.4) g/dL Hct 23.0 L (35.3-44.9) % MCV 96.2 (83.0-100.0) fL MCH 31.4 (28.0-33.3) pg MCHC 32.6 (31.6-35.5) g/dL RDW 16.1 H (11.5-14.5) % Plt Count 118 L (140-400) K/mcL MPV 11.1 (9.4-12.4) fL Immature Gran % 0.3 (0-4) % Seg Neutrophils % 71.4 % Lymphocytes % 15.0 % Monocytes % 8.2 % Eosinophils % 4.9 % Basophils % 0.2 % Neutrophils # 4.5 (1.6-8.9) K/mcL Lymphocytes # 1.0 (0.6-4.6) K/mcL Monocytes # 0.5 (0.0-1.3) K/mcL Eosinophils # 0.3 (0.0-0.6) K/mcL Basophils # 0.0 (0.0-0.2) K/mcL PT (9.4-12.1) Seconds INR Sodium (136-145) mEq/L Potassium (3.5-5.1) mEq/L Chloride (98-107) mEq/L Carbon Dioxide (23-29) mEq/L BUN (6-20) mg/dL Creatinine (0.60-1.20) mg/dL Est GFR ( Amer) (> 60) Est GFR (Non-Af Amer) (> 60) BUN/Creatinine Ratio (6-26) Glucose (70-105) mg/dL Calculated Osmolality (280-300) Lactic Acid 0.6 (0.5-2.2) mmol/L Calcium (8.6-10.3) mg/dL Phosphorus (2.7-4.5) mg/dL Magnesium (1.6-2.6) mg/dL Total Bilirubin (0.3-1.0) mg/dL Direct Bilirubin (0.0-0.2) mg/dL Indirect Bilirubin (0.0-1.2) mg/dL AST (13-39) Units/L ALT (7-52) Units/L Alkaline Phosphatase (34-104) Units/L Serum Total Protein (6.4-8.9) g/dL Albumin (3.5-5.7) g/dL Globulin (2.4-3.5) g/dL Albumin/Globulin Ratio (1.1-2.2) Lipase (11-82) Units/L Urine Color Yellow (Yellow) Urine Clarity Cloudy A (Clear) Urine pH 7.5 (5.0-8.0) pH Units Ur Specific [place] 1.005 L (1.010-1.025) Urine Protein >=300 H (Neg-Trace) mg/dL Urine Glucose (UA) 100 H (Normal) mg/dL Urine Ketones Negative (Negative) mg/dL Urine Blood Trace H (Negative) Urine Nitrite Negative (Negative) Urine Bilirubin Negative (Negative) Urine Urobilinogen Normal (Normal) mg/dL Ur Leukocyte Esterase Small H (Negative) Urine Microscopic RBC 0-3 (0-3) per hpf Urine Microscopic WBC 15-30 H (0-3) per hpf Ur Squamous Epith Cells Many H (None-Few) per lpf Urine Bacteria Moderate H (None-Few) per hpf Hyaline Casts None Seen (None-Few) per lpf Ur Culture Indicated? NO. A (NO) - Radiology Data Radiology results reviewed: Yes I reviewed the patient's radiology results. Chest X-Ray 07/31/18 14:14 IMPRESSION: No evidence of acute cardiopulmonary disease. D/ / Reuben Osuna MD / Reuben Osuna MD Interpreting Provider: Reuben Osuna MD - EKG Data EKG #1 EKG attestation: Yes I reviewed and interpreted this EKG. EKG shows normal: sinus rhythm Rate: normal Rhythm: NSR [place]/QRS: normal T wave inversions noted in: I, aVL Interpretation: no acute changes SYahir - Ciera Situation: Demographics Background: Presenting Complaint Assessment: Vital Signs, Course and respsone to treatment, Patient/Family Expectation Recommendation: Barrier(s) to disposition, Recommendation based on pending studies, treatments, or consults SYahir Report Given to: Dr. Macarena Vang Repor Time: 15:42
[2018-07-31 14:36] LABS: Bilirubin,Urine Negative (Negative); Blood,Urine Trace (Negative); Clarity,Urine Cloudy (Clear); Color,Urine Yellow (Yellow); Glucose,Urine (UA) 100 mg/dL (Normal); Ketones,Urine Negative (Negative); Leukocyte Esterase,Urine Small (Negative); Nitrite,Urine Negative (Negative); PH,Urine 7.5 pH Units (5.0-8.0); Protein,Urine >=300 mg/dL (Neg-Trace); Specific Gravity,Urine 1.005 (1.010-1.025); Urobilinogen,Urine Normal (Normal)
[2018-07-31 14:38] LABS: Bacteria,Urine Moderate per hpf (None-Few); Hyaline Casts,Urine None Seen per lpf (None-Few); RBC,Urine 0-3 per hpf (0-3); Squamous Epithelial Cell,Urine Many per lpf (None-Few); WBC,Urine 15-30 per hpf (0-3)
[2018-07-31 15:04] LABS: Basophils % 0.2 %; Eosinophils # 0.3 K/mcL (0.0-0.6); Eosinophils % 4.9 %; Hemoglobin 7.5 g/dL (11.5-15.4); Immature Granulocytes % 0.3 % (0-4); Mean Corpuscular HGB Conc 32.6 g/dL (31.6-35.5); Mean Corpuscular Hemoglobin 31.4 pg (28.0-33.3); Mean Corpuscular Volume 96.2 fL (83.0-100.0); Mean Platelet Volume 11.1 fL (9.4-12.4); Monocytes # 0.5 K/mcL (0.0-1.3); Monocytes % 8.2 %; Neutrophils # 4.5 K/mcL (1.6-8.9); Platelet Count 118 K/mcL (140-400); Red Blood Count 2.39 M/mcL (3.82-4.97); Red Cell Distribution Width 16.1 % (11.5-14.5); Segmented Neutrophils % 71.4 %
[2018-07-31 15:09] LABS: Phosphorous 12.9 mg/dL (2.7-4.5)
[2018-07-31 15:11] LABS: INR 1.1; Prothrombin Time 12.7 Seconds (9.4-12.1)
[2018-07-31 15:11] LABS: Albumin 3.8 g/dL (3.5-5.7); Albumin/Globulin Ratio 1.4 (1.1-2.2); Bilirubin,Indirect 0.4 mg/dL (0.0-1.2); Bilirubin,Total 0.4 mg/dL (0.3-1.0); Calcium 7.9 mg/dL (8.6-10.3); Globulin 2.8 g/dL (2.4-3.5); Potassium 4.2 mEq/L (3.5-5.1); Total Protein 6.6 g/dL (6.4-8.9)
--- NOTE | 2018-07-31 15:46 | Emergency Department Note ---
Disposition Clinical Impression: Acute kidney injury superimposed on chronic kidney disease, Uremia Anemia Qualifiers: Anemia type: unspecified type Qualified Code(s): D64.9 - Anemia, unspecified Disposition: Admitted As Inpatient Condition: Fair Referrals: NONE,PCP [Primary Care Provider] - Forms: ED Satisfaction Letter, Work/School Release General Adult HPI - General Chief complaint: ED General Medical Stated complaint: Needs Port Time Seen by Provider: 07/31/18 13:32 Source: patient Mode of arrival: ambulatory Limitations: no limitations - History of Present Illness Pain Scale: 5 - Related Data Home Medications Medication Instructions Recorded Confirmed Aspirin [Lo-Dose Aspirin EC] 81 mg PO DAILY 06/19/16 07/31/18 Gemfibrozil [Lopid] 600 mg PO BID 06/19/16 07/31/18 Omeprazole [PriLOSEC] 40 mg PO BID 06/19/16 07/31/18 Simvastatin [Zocor] 40 mg PO DAILY 06/19/16 07/31/18 Sodium Bicarbonate 1,950 mg PO BID 06/19/16 07/31/18 amLODIPine [Norvasc] 5 mg PO BID 07/21/18 07/31/18 hydrALAZINE [HydrALAZINE] 25 mg PO BID 07/21/18 07/31/18 Albuterol Sulfate [Albuterol 0 puff IH Q4HR PRN 07/31/18 07/31/18 Inhaler] Budesonide/Formoterol 80/4.5 2 puff IH BID 07/31/18 07/31/18 [Symbicort 80/4.5] Calcium Carbonate [Tums] 1,500 mg PO TIDWM 07/31/18 07/31/18 Cholecalciferol (D-3) [Vitamin D] 5,000 unit PO QWEEK 07/31/18 07/31/18 Cinacalcet HCl [Sensipar] 60 mg PO DAILY 07/31/18 07/31/18 Dicyclomine [Bentyl] 10 mg PO TID 07/31/18 07/31/18 FLUoxetine HCl [Prozac] 40 mg PO DAILY 07/31/18 07/31/18 Furosemide [Lasix] 40 mg PO DAILY 07/31/18 07/31/18 Levothyroxine [Synthroid] 88 mcg PO 0630 07/31/18 07/31/18 Metoclopramide [Reglan] 10 mg PO TID 07/31/18 07/31/18 Metoprolol Succinate [Toprol Xl] 25 mg PO DAILY 07/31/18 07/31/18 Sucralfate [Carafate] 1 gm PO TIDAC 07/31/18 07/31/18 Vitamin B Complex [Balanced B-50] 1 each PO DAILY 07/31/18 07/31/18 Allergies Allergy/AdvReac Type Severity Reaction Status Date / Time diphenhydramine Allergy Unconscious Verified 07/31/18 13:43 [From Benadryl] Constitutional: Denies: fever Cardiovascular: Denies: chest pain Respiratory: Reports: cough. Denies: dyspnea Gastrointestinal: Denies: abdominal pain, nausea, vomiting Past Medical History - Past Medical History Medical history: Reports: arthritis, asthma, diabetes, dialysis, GERD, hypertension, osteoporosis, renal disease, thyroid disease, other Surgical history: Reports: appendectomy, transplant, other, vascular surgery Psychiatric history: Reports: no psych history - Social History Smoking Status: Never smoker Smokeless Tobacco Status: No Alcohol use: Reports: none Drug use: Reports: none Physical Exam - General Limitations: no limitations General appearance: alert, in no apparent distress Course Vital Signs Temperature 98.0 F 07/31/18 13:43 Pulse Rate 91 07/31/18 13:43 Respiratory Rate 15 07/31/18 13:43 Blood Pressure 160/97 07/31/18 13:43 O2 Sat by Pulse Oximetry 94 07/31/18 13:43 Temperature 98.0 F 07/31/18 13:43 Pulse Rate 91 07/31/18 13:43 Respiratory Rate 15 07/31/18 13:43 Blood Pressure 160/97 07/31/18 13:43 O2 Sat by Pulse Oximetry 94 07/31/18 13:43 Oxygen Delivery Oxygen Delivery Room Air Medical Decision Making - Lab Data Result diagrams: 07/31/18 14:37 07/31/18 14:04 Lab Results 07/31/18 07/31/18 07/31/18 Range/Units 14:04 14:05 14:19 WBC (4.3-11.1) K/mcL RBC (3.82-4.97) M/mcL Hgb (11.5-15.4) g/dL Hct (35.3-44.9) % MCV (83.0-100.0) fL MCH (28.0-33.3) pg MCHC (31.6-35.5) g/dL RDW (11.5-14.5) % Plt Count (140-400) K/mcL MPV (9.4-12.4) fL Immature Gran % (0-4) % Seg Neutrophils % % Lymphocytes % % Monocytes % % Eosinophils % % Basophils % % Neutrophils # (1.6-8.9) K/mcL Lymphocytes # (0.6-4.6) K/mcL Monocytes # (0.0-1.3) K/mcL Eosinophils # (0.0-0.6) K/mcL Basophils # (0.0-0.2) K/mcL PT 12.7 H (9.4-12.1) Seconds INR 1.1 Sodium 143 (136-145) mEq/L Potassium 4.2 (3.5-5.1) mEq/L Chloride 96 L (98-107) mEq/L Carbon Dioxide 23 (23-29) mEq/L BUN 81 H (6-20) mg/dL Creatinine 19.09 H (0.60-1.20) mg/dL Est GFR ( Amer) 2 L (> 60) Est GFR (Non-Af Amer) 2 L (> 60) BUN/Creatinine Ratio 4 L (6-26) Glucose 109 H (70-105) mg/dL Calculated Osmolality 321 H (280-300) Lactic Acid (0.5-2.2) mmol/L Calcium 7.9 L (8.6-10.3) mg/dL Phosphorus 12.9 H (2.7-4.5) mg/dL Magnesium 2.0 (1.6-2.6) mg/dL Total Bilirubin 0.4 (0.3-1.0) mg/dL Direct Bilirubin 0.0 (0.0-0.2) mg/dL Indirect Bilirubin 0.4 (0.0-1.2) mg/dL AST 18 (13-39) Units/L ALT 15 (7-52) Units/L Alkaline Phosphatase 75 (34-104) Units/L Serum Total Protein 6.6 (6.4-8.9) g/dL Albumin 3.8 (3.5-5.7) g/dL Globulin 2.8 (2.4-3.5) g/dL Albumin/Globulin Ratio 1.4 (1.1-2.2) Lipase 37 (11-82) Units/L Urine Color (Yellow) Urine Clarity (Clear) Urine pH (5.0-8.0) pH Units Ur Specific [place] (1.010-1.025) Urine Protein (Neg-Trace) mg/dL Urine Glucose (UA) (Normal) mg/dL Urine Ketones (Negative) mg/dL Urine Blood (Negative) Urine Nitrite (Negative) Urine Bilirubin (Negative) Urine Urobilinogen (Normal) mg/dL Ur Leukocyte Esterase (Negative) Urine Microscopic RBC (0-3) per hpf Urine Microscopic WBC (0-3) per hpf Ur Squamous Epith Cells (None-Few) per lpf Urine Bacteria (None-Few) per hpf Hyaline Casts (None-Few) per lpf Ur Culture Indicated? (NO) 07/31/18 07/31/18 07/31/18 Range/Units 14:27 14:37 14:46 WBC 6.3 (4.3-11.1) K/mcL RBC 2.39 L (3.82-4.97) M/mcL Hgb 7.5 L (11.5-15.4) g/dL Hct 23.0 L (35.3-44.9) % MCV 96.2 (83.0-100.0) fL MCH 31.4 (28.0-33.3) pg MCHC 32.6 (31.6-35.5) g/dL RDW 16.1 H (11.5-14.5) % Plt Count 118 L (140-400) K/mcL MPV 11.1 (9.4-12.4) fL Immature Gran % 0.3 (0-4) % Seg Neutrophils % 71.4 % Lymphocytes % 15.0 % Monocytes % 8.2 % Eosinophils % 4.9 % Basophils % 0.2 % Neutrophils # 4.5 (1.6-8.9) K/mcL Lymphocytes # 1.0 (0.6-4.6) K/mcL Monocytes # 0.5 (0.0-1.3) K/mcL Eosinophils # 0.3 (0.0-0.6) K/mcL Basophils # 0.0 (0.0-0.2) K/mcL PT (9.4-12.1) Seconds INR Sodium (136-145) mEq/L Potassium (3.5-5.1) mEq/L Chloride (98-107) mEq/L Carbon Dioxide (23-29) mEq/L BUN (6-20) mg/dL Creatinine (0.60-1.20) mg/dL Est GFR ( Amer) (> 60) Est GFR (Non-Af Amer) (> 60) BUN/Creatinine Ratio (6-26) Glucose (70-105) mg/dL Calculated Osmolality (280-300) Lactic Acid 0.6 (0.5-2.2) mmol/L Calcium (8.6-10.3) mg/dL Phosphorus (2.7-4.5) mg/dL Magnesium (1.6-2.6) mg/dL Total Bilirubin (0.3-1.0) mg/dL Direct Bilirubin (0.0-0.2) mg/dL Indirect Bilirubin (0.0-1.2) mg/dL AST (13-39) Units/L ALT (7-52) Units/L Alkaline Phosphatase (34-104) Units/L Serum Total Protein (6.4-8.9) g/dL Albumin (3.5-5.7) g/dL Globulin (2.4-3.5) g/dL Albumin/Globulin Ratio (1.1-2.2) Lipase (11-82) Units/L Urine Color Yellow (Yellow) Urine Clarity Cloudy A (Clear) Urine pH 7.5 (5.0-8.0) pH Units Ur Specific [place] 1.005 L (1.010-1.025) Urine Protein >=300 H (Neg-Trace) mg/dL Urine Glucose (UA) 100 H (Normal) mg/dL Urine Ketones Negative (Negative) mg/dL Urine Blood Trace H (Negative) Urine Nitrite Negative (Negative) Urine Bilirubin Negative (Negative) Urine Urobilinogen Normal (Normal) mg/dL Ur Leukocyte Esterase Small H (Negative) Urine Microscopic RBC 0-3 (0-3) per hpf Urine Microscopic WBC 15-30 H (0-3) per hpf Ur Squamous Epith Cells Many H (None-Few) per lpf Urine Bacteria Moderate H (None-Few) per hpf Hyaline Casts None Seen (None-Few) per lpf Ur Culture Indicated? NO. A (NO) Attestation Statement - Attestation Attestation: I examined this patient and my medical decision-making was reviewed with the Resident Physician. I agree with the documented findings, disposition and treatment plan as described except to the extent set forth below. 52 year old female presents to the ED with complaints of uremia and was sent here by nephrology for permacath placement as she has failed periotneal lilo lysis. Matilde is not hyperkalmic and we have consulted with IR and nephrology and she has been admitted to medicine. Ir plans to do the permacath tomorrow.
--- NOTE | 2018-07-31 20:30 | Internal Med History&Physical ---
Date of Encounter: 07/31/18 Time of Encounter: 19:00 Internal Medicine - H&P: HPI Chief complaint: Weakness; developing uremia Admitted From: Home Plans for Post Hospital Care: Home History of present illness: The patient is a 52-year-old woman with long-standing end-stage renal disease. She has been on peritoneal dialysis for a few months. She has developed uremic syndrome; sent for admission by her supervisor policy change clerks (on the basis of blood testing done about a week ago). She feels weak. However, she has no major problems with ambulation. Denies chest pain and difficulty breathing. Denies coughing and wheezing. Denies abdominal pain, nausea and vomiting. She makes only very small amounts of urine. PAST MEDICAL HX: The patient has had long-standing hypertension; developed end-stage renal disease. She has been on dialysis since 2003. It was either peritoneal dialysis or hemodialysis. She was using her arteriovenous shunt for about 12 years. Then, she switched to Permacath. She has been getting peritoneal dialysis for the last few months. She is treated for asthma, GERD, hypothyroidism, hyperlipidemia and osteoporosis. PAST FAMILY HX: Positive for hypertension. PAST SOCIAL HX: She has never used tobacco. Denies alcohol or illicit drugs use. REVIEW OF SYSTEMS: All 14 organ systems were reviewed by me with the patient. Positive and pertinent negative findings are listed above. The rest of organ systems is negative. PHYSICAL EXAM: Skin: Free of rash and discoloration. Eyes: Sclera is white. There is no discharge from eyes. ENMT: Oral/pharyngeal mucosa is normal in appearance. There is no discharge from nose or ears. Respiratory: Normal breath sounds with no crackles and wheezes bilaterally. CV: Heart is regular with no gallop or murmur. GI: Abdomen is flat and soft with no palpable mass or visceromegaly. : There is no tenderness in patient's flanks bilaterally. Neuro exam: He has good strength in upper and lower extremities. He has normal eye movements. Psychiatric: He has normal affect. His thought process is appropriate to the situation. ADDITIONAL DATA: Chest x-ray from today does not show any evidence of acute cardiopulmonary disease. Hemoglobin is 7.5 (has had chronic anemia from end-stage renal disease) with WBC of 6.3 thousand and platelet count of 118,000 (was 165,010 days ago). Sodium and potassium are normal. Bicarb is 23. Creatinine is 19.09. Calcium is 7.9 with phosphorus of 12.9. Liver function tests are normal BNP is 2472. A/P: End-stage renal disease on peritoneal dialysis. Developing uremic syndrome. She will be switched to hemodialysis. She will have permacath inserted. Hemodialysis will be started during this hospitalization. Nephrology has been consulted. She has had chronic anemia from end-stage renal disease. Asymptomatic at this time. I will leave her treatment of this problem to nephrology. Past Med Surg Social Fam HX - Past Medical History Medical history: arthritis, asthma, diabetes, dialysis, GERD, hypertension, osteoporosis, renal disease, thyroid disease, other Psychiatric history: no psych history - Past Surgical History Surgical History: appendectomy, transplant, other, vascular surgery Additional surgical history: Kidney transplant. - Social History Smoking Status: Never smoker Smokeless Tobacco Status: No Alcohol use: none Drug use: none Internal Medicine - H&P: Meds Aspirin [Lo-Dose Aspirin EC] 81 mg PO DAILY 06/19/16 [History] Gemfibrozil [Lopid] 600 mg PO BID 06/19/16 [History] Omeprazole [PriLOSEC] 40 mg PO BID 06/19/16 [History] Simvastatin [Zocor] 40 mg PO DAILY 06/19/16 [History] Sodium Bicarbonate 1,950 mg PO BID 06/19/16 [History] amLODIPine [Norvasc] 5 mg PO BID 07/21/18 [History] hydrALAZINE [HydrALAZINE] 25 mg PO BID 07/21/18 [History] Albuterol Sulfate [Albuterol Inhaler] 0 puff IH Q4HR PRN 07/31/18 [History] Budesonide/Formoterol 80/4.5 [Symbicort 80/4.5] 2 puff IH BID 07/31/18 [History] Calcium Carbonate [Tums] 1,500 mg PO TIDWM 07/31/18 [History] Cholecalciferol (D-3) [Vitamin D] 5,000 unit PO QWEEK 07/31/18 [History] Cinacalcet HCl [Sensipar] 60 mg PO DAILY 07/31/18 [History] Dicyclomine [Bentyl] 10 mg PO TID 07/31/18 [History] FLUoxetine HCl [Prozac] 40 mg PO DAILY 07/31/18 [History] Furosemide [Lasix] 40 mg PO DAILY 07/31/18 [History] Levothyroxine [Synthroid] 88 mcg PO 0630 07/31/18 [History] Metoclopramide [Reglan] 10 mg PO TID 07/31/18 [History] Metoprolol Succinate [Toprol Xl] 25 mg PO DAILY 07/31/18 [History] Sucralfate [Carafate] 1 gm PO TIDAC 07/31/18 [History] Vitamin B Complex [Balanced B-50] 1 each PO DAILY 07/31/18 [History] Allergy/AdvReac Type Severity Reaction Status Date / Time diphenhydramine Allergy Unconscious Verified 07/31/18 13:43 [From Benadryl] - Constitutional Vitals: Temp Pulse Resp BP Pulse Ox 98.1 F 87 16 147/92 93 07/31/18 18:34 07/31/18 18:34 07/31/18 18:34 07/31/18 18:34 07/31/18 18:34 General appearance: Present: A&O X 3, no acute distress, answers questions appropriately Exam: xx Internal Med - H&P Results - Labs CBC & Chem 7: 07/31/18 14:37 07/31/18 14:04 Labs: Short CBC 07/31/18 Range/Units 14:37 WBC 6.3 (4.3-11.1) K/mcL Hgb 7.5 L (11.5-15.4) g/dL Hct 23.0 L (35.3-44.9) % Plt Count 118 L (140-400) K/mcL Neutrophils # 4.5 (1.6-8.9) K/mcL BMP 07/31/18 14:04 Sodium 143 Potassium 4.2 Chloride 96 L Carbon Dioxide 23 BUN 81 H Creatinine 19.09 H Glucose 109 H Calcium 7.9 L Liver Function 07/31/18 Range/Units 14:04 Total Bilirubin 0.4 (0.3-1.0) mg/dL Direct Bilirubin 0.0 (0.0-0.2) mg/dL AST 18 (13-39) Units/L ALT 15 (7-52) Units/L Alkaline Phosphatase 75 (34-104) Units/L Albumin 3.8 (3.5-5.7) g/dL Urine 07/31/18 Range/Units 14:27 Urine Color Yellow (Yellow) Urine Clarity Cloudy A (Clear) Urine pH 7.5 (5.0-8.0) pH Units Ur Specific [place] 1.005 L (1.010-1.025) Urine Protein >=300 H (Neg-Trace) mg/dL Urine Glucose (UA) 100 H (Normal) mg/dL - Impressions ITS Impressions Chest X-Ray 07/31/18 14:14 IMPRESSION: No evidence of acute cardiopulmonary disease. D/ / Reuben Osuna MD / Reuben Osuna MD Interpreting Provider: Reuben Osuna MD - Assessment and Plan (1) Uremia Current Visit: Yes Status: Acute (2) Hypertensive CKD, ESRD on dialysis Current Visit: Yes Status: Acute (3) ESRD on peritoneal dialysis Current Visit: Yes Status: Chronic (4) Anemia in ESRD (end-stage renal disease) Current Visit: Yes Status: Chronic - Time Spent With Patient Total time spent is greater than 50% in coordination of care (as documented) at patient's floor/unit and/or counseling patient: 25 - 35 minutes
[2018-07-31] MEDS ORDERED: Cholecalciferol (D-3) 1,000 UNIT TABLET PO SCH (22:00)
[2018-08-01 04:13] LABS: Hemoglobin 6.6 g/dL (11.5-15.4); Mean Corpuscular Hemoglobin 32.5 pg (28.0-33.3); Mean Corpuscular Volume 98.5 fL (83.0-100.0); Platelet Count 120 K/mcL (140-400); Red Blood Count 2.03 M/mcL (3.82-4.97)
[2018-08-01 04:36] LABS: Calcium 7.5 mg/dL (8.6-10.3); Potassium 4.3 mEq/L (3.5-5.1)
[2018-08-01] MEDS: *HR* Heparin 5,000 UNIT/ML VIAL SQ SCH ×2 (05:24→17:22)
[2018-08-01] MEDS ORDERED: 0.9 % Sodium Chloride 250 ML IVC PRN (06:28)
[2018-08-01] MEDS ORDERED: 0.9 % Sodium Chloride 1,000 ML PRIME SCH (06:30)
--- NOTE | 2018-08-01 06:57 | Event Note ---
Date of Encounter: 08/01/18 Time of Encounter: 06:44 Alerted by pts. nurse Miri RN that the pts. Hgb in a.m. labs was now 6.6, down from 7.5 yesterday. Pt. is not typed and screened, so stat type and screen ordered and lab notified. Transfusion order for [address] Hansen to alert him of the situation and I appreciate the consult and recommendations as always. Pt. is to be dialyzed over the next three days w/order for permacath placed by Dr. Hansen w/IR. Nurse instructed to continue monitoring pt. closely and alert day team of any adverse changes.
[2018-08-01] MEDS ORDERED: Aspirin Enteric Coated 81 MG Tablet PO SCH (09:00)
--- NOTE | 2018-08-01 09:25 | Nephrology Consult Note ---
Date of Encounter: 08/01/18 Time of Encounter: 07:55 Assessment and Plan (1) ESRD (end stage renal disease) Current Visit: Yes Status: Chronic Permacath, and HD orders were placed. I have placed 3 consecutive dialysis orders, if she were to remain in the hospital. The patient tells me she already has a dialysis chair arranged Tuesday/Tuesday/Tuesday at noon. She is okay to discharge if dialysis goes smoothly today, from a Nephro perspective. Often times a Permacath can be arranged as an outpatient, but since she is already here, I've ordered it for her. I will defer to her outside supervisor water treatment plant on arranging for an outpt PD catheter removal, as an outpt. Will have to request medical records from her outside supervisor water treatment plant, who reportedly sent her here for uremia. She was not uremic on my exam (azotemia does not equal uremia). She said she was sent in to have a Permacath placed and switched to hemodialysis, since PD was no longer providing sufficient clearance. She has had previous Permacaths, and she said her Left Upper Arm AVG has not worked for quite some time (there was not thrill or bruit). She should have her outpt HD unit refer her for an AVF creation. Renal diet and typical renal precautions recommended in the hospital. Thank you for consulting the [facility] group. (2) Anemia in ESRD (end-stage renal disease) Current Visit: Yes Status: Acute Goal hemoglobin is 10-11, and she has required multiple transfusions over the last few months. She will need more PRBC transfusion(s) today, which the hospitalist has already ordered. I have plans for dialysis today to help maintain her volume status. She should have an erythropoietin stimulating agent added at her outpatient dialysis unit. (3) H/O kidney transplant Current Visit: No Status: Chronic She said she was weaned off I/S meds years ago. (4) Hypertension Current Visit: No Status: Chronic Continue home Rx. Qualifiers: Hypertension type: essential hypertension Qualified Code(s): I10 - Essential (primary) hypertension History of Present Illness - Reason for Consult Consult date: 08/01/18 end stage renal disease Requesting physician: Mohsen Brown - Chief Complaint Transition to HD from PD - History of Present Illness 52 y/o very pleasant lady with a pmh of ESRD secondary HTN (according to the pt) s/p failed renal transplant '- who was on HD and then more recently was converted to PD, but reportedly failed PD. She said she was not sure why by a new kidney doc at her facility sent her [facility] for inpt initiation of dialysis. She said she previously had a Permacath that was placed as an outpt, but was told to have the Permacath placed in the hospital. Her nephrology group reportedly no longer rounds at [facility] to see their patients, so I will be happy to consult on the pt during this Admission (will have to request medical records). She denied having the typical urgent/uremic symptoms of N/V/D, lost appetite, but did confirm some fatigue. She did not affirm CP or shortness of breath. She said she used to see Dr. Patton until he semi-retired at the private HD unit in [place], [place]. She denied having visible blood loss. She said she already has an HD chair time arranged at the former [facility] private HD unit in [place], [place], on MWF at noon. She asked to discharge to home today after receiving the Permacath. Past Med Surg Social Fam HX - Past Medical History Medical history: arthritis, asthma, diabetes, dialysis, GERD, hypertension, os teoporosis, renal disease, thyroid disease, other Psychiatric history: no psych history - Past Surgical History Surgical History: appendectomy, transplant, other, vascular surgery Additional surgical history: Kidney transplant. - Social History Smoking Status: Never smoker Smokeless Tobacco Status: No Alcohol use: none Drug use: none - Family History Mother Adopted: [place]: Shruti Age: 74 Family Member Ethnicity: Non- Twin of Family Member: Yes Living Status: Still Living Hx Family Cancer: Yes Medications and Allergies Aspirin [Lo-Dose Aspirin EC] 81 mg PO DAILY 06/19/16 [History] Gemfibrozil [Lopid] 600 mg PO BID 06/19/16 [History] Omeprazole [PriLOSEC] 40 mg PO BID 06/19/16 [History] Simvastatin [Zocor] 40 mg PO DAILY 06/19/16 [History] Sodium Bicarbonate 1,950 mg PO BID 06/19/16 [History] amLODIPine [Norvasc] 5 mg PO BID 07/21/18 [History] hydrALAZINE [HydrALAZINE] 25 mg PO BID 07/21/18 [History] Albuterol Sulfate [Albuterol Inhaler] 0 puff IH Q4HR PRN 07/31/18 [History] Budesonide/Formoterol 80/4.5 [Symbicort 80/4.5] 2 puff IH BID 07/31/18 [History] Calcium Carbonate [Tums] 1,500 mg PO TIDWM 07/31/18 [History] Cholecalciferol (D-3) [Vitamin D] 5,000 unit PO QWEEK 07/31/18 [History] Cinacalcet HCl [Sensipar] 60 mg PO DAILY 07/31/18 [History] Dicyclomine [Bentyl] 10 mg PO TID 07/31/18 [History] FLUoxetine HCl [Prozac] 40 mg PO DAILY 07/31/18 [History] Furosemide [Lasix] 40 mg PO DAILY 07/31/18 [History] Levothyroxine [Synthroid] 88 mcg PO 0630 07/31/18 [History] Metoclopramide [Reglan] 10 mg PO TID 07/31/18 [History] Metoprolol Succinate [Toprol Xl] 25 mg PO DAILY 07/31/18 [History] Sucralfate [Carafate] 1 gm PO TIDAC 07/31/18 [History] Vitamin B Complex [Balanced B-50] 1 each PO DAILY 07/31/18 [History] Allergy/AdvReac Type Severity Reaction Status Date / Time diphenhydramine Allergy Unconscious Verified 07/31/18 13:43 [From Deb] Review of Systems All Systems: reviewed and no additional remarkable complaints except as stated Exam - Vital Signs Vital signs: Initial Vital Signs Temp Pulse Resp BP Pulse Ox 98.0 F 91 15 160/97 94 07/31/18 13:43 07/31/18 13:43 07/31/18 13:43 07/31/18 13:43 07/31/18 13:43 Vital Signs - Last 8 Hours Temp Pulse Resp BP Pulse Ox 08/01/18 07:41 98.2 F 82 18 157/93 91 08/01/18 03:50 98.4 F 89 18 151/89 93 Intake and Output 07/31/18 08/01/18 08/01/18 23:59 07:59 15:59 Intake Total 0 / 0 0 / 0 Balance 0 / 0 0 / 0 Intake: Oral 0 / 0 0 / 0 Other: Meal NPO Percent of Meal Consumed 0% Weight 107.7 kg - General Appearance General appearance: well-developed, well-nourished EENT: ATNC, PERRL, mucous membranes moist Neck: supple Respiratory: clear Cardiology: edema (minimal trace ankle edema b/l), regular rate, regular rhythm, normal S1, normal S2 Gastrointestinal: normoactive bowel sounds, no tenderness Additional Comments: scar in the right infraclavicular region (from prior Permacath she said). Left UE AVG without any thrill or bruit. Neurologic: no focal deficit, no asterixis, alert and oriented x3 Musculoskeletal: no deformities, no erythema, no cyanosis Psychiatric: mood/affect appropriate, cooperative Results - Lab Results 08/01/18 16:33 08/01/18 04:00 Most recent lab results Calcium 7.5 mg/dL (8.6-10.3) L 08/01/18 04:00 Phosphorus 12.9 mg/dL (2.7-4.5) H 07/31/18 14:05 Magnesium 2.0 mg/dL (1.6-2.6) 07/31/18 14:05 Consult Discharge Plan - Plan Referrals: NONE,PCP [Primary Care Provider] -
--- NOTE | 2018-08-01 09:44 | Electrocardiograph Report ---
[place] [address] Test Date: 2018-07-31 Pat Name: Dina Rodgers Department: EXAM9 Room: 2A26 Gender: F Cost Control Specialist: : 1965 Requested By: Mohsen Brown Order Number: [id number] Reading MD: Jaquan Asher Measurements Intervals [place] Rate: 90 P: 54 CO: 159 QRS: 9 QRSD: 113 T: 147 QT: 427 QTc: 523 Interpretive Statements Sinus rhythm Probable anterior infarct, age indeterminate Prolonged QT interval Electronically Signed On 08-01-2018 9:42:58 EDT by Jaquan Asher
[2018-08-01] MEDS ORDERED: 0.9 % Sodium Chloride 250 ML ONE (09:55)
[2018-08-01] MEDS: FLUoxetine 20 MG CAPSULE PO SCH (09:59)
[2018-08-01] MEDS: Vitamin B Complex/Vit C/Vit E 1 EACH TABLET PO SCH (09:59)
[2018-08-01] MEDS: Cholecalciferol (D-3) 1,000 UNIT TABLET PO SCH (09:59)
[2018-08-01] MEDS: hydrALAZINE 25 MG TABLET PO SCH ×2 (10:00→21:19)
[2018-08-01] MEDS: Sucralfate 1 GM TABLET PO SCH ×3 (10:00→16:27)
[2018-08-01] MEDS: Furosemide 40 MG TABLET PO SCH (10:00)
[2018-08-01] MEDS: Metoprolol XL (24 HR) Succ 25 MG TAB.ER.24H PO SCH (10:00)
[2018-08-01] MEDS: amLODIPine 5 MG TABLET PO SCH ×2 (10:00→21:19)
[2018-08-01] MEDS ORDERED: Heparin 1,000 UNITS/500 mL 500 ML ONE (10:05)
[2018-08-01] MEDS ORDERED: *HR* Midazolam HCl 2 MG/2 ML VIAL IVP ONE (11:15)
[2018-08-01] MEDS ORDERED: *HR* FentaNYL (PF) 100 MCG/2 ML VIAL IVP ONE (11:15)
[2018-08-01] MEDS ORDERED: CeFAZolin Premix DUPLEX 2,000 MG/50 ML BAG IVPB ONE (11:15)
--- NOTE | 2018-08-01 11:17 | Pre-Sedation Evaluation ---
Pre-sedation evaluation - Pre-sedation checklist Date of procedure: 08/01/18 Procedure: Permacath placement Recent Vitals: Last Vital Signs Temp 98.6 F 08/01/18 10:29 Pulse 84 08/01/18 10:29 Resp 18 08/01/18 10:29 BP 151/89 08/01/18 10:29 Pulse Ox 91 08/01/18 10:34 H&P (including ROS) documented in medical record: Yes Previous reaction to sedatives/anesthetics: No Dietary Status: NPO after Midnight Dentition: No loose teeth or bridges ASA Classification *see protocol: CLASS II-Mild systemic disease Plan of Care: Pt appropriate candidate for procedure/moderate/conscious sedation, Risks/benefits of procedure/sedation discussed w/ patient/family
[2018-08-01] MEDS: Budesonide/Formoterol 80/4.5 MDI IH SCH ×2 (11:38→20:21)
[2018-08-01] MEDS ORDERED: *HR* Heparin 10,000 UNIT/10 ML VIAL IV PRN (11:51)
[2018-08-01] MEDS ORDERED: *HR* Heparin 5,000 UNIT/ML VIAL ONE (12:03)
[2018-08-01] MEDS ORDERED: Isovue-300 50 ML VIAL IVP ONE (12:07)
--- NOTE | 2018-08-01 12:09 | IR Procedure Note ---
Date of procedure: 08/01/18 Consent Obtained: Written consent Timeout: Correct patient and procedure verified, Time out performed, Skin prep completed Local anesthetic: Lidocaine 1% Indications: CRF Procedure Performed: permacath placement Was there an esol teacher assistant present: No Results/Findings: Occluded RIJ. LIJ 14F 28cm jaqueline-split TDC placement Estimated blood loss (cc): 1 Complications: None; Tolerated procedure well Post Procedure Treatment Plan: Monitor on floor Specimen: None
[2018-08-01 16:02] LABS: Hepatitis B Surface Antibody < 3.10 mIU/mL
[2018-08-01 16:13] LABS: Hepatitis B Surface Antigen Nonreactive (Nonreactive)
[2018-08-01 17:18] LABS: Hemoglobin 8.8 g/dL (11.5-15.4)
--- NOTE | 2018-08-01 23:58 | Internal Med Progress Note ---
Hospitalist Progress Note - Encounter Date of Encounter: 08/01/18 Time of Encounter: 19:00 - Subjective Interval History: SUBJECTIVE: The patient is stronger. She received 2 units of packed red blood cells today. She got permacath. She received her first hemodialysis. She was getting peritoneal dialysis at home; developed uremic syndrome. Denies chest pain. Denies difficulty breathing. Denies abdominal pain, nausea and vomiting. She basically does not make any urine. OBJECTIVE: Skin: Free of rash and discoloration. ENMT: Oral/pharyngeal mucosa is normal in appearance. Eyes: Sclera is white. There is no discharge from eyes. Respiratory: Normal breath sounds; no crackles or wheezes. CV: Heart is regular; no gallop or murmur. GI: Abdomen is soft and not tender. There is no palpable mass or visceromegaly. Neuro: There is no focal deficits. ADDITIONAL DATA: CBC from today morning revealed hemoglobin of 6.6 with WBC of 5.9 thousand and platelet count of 120,000. Associated with normal electrolytes. Creatinine is 19.35. ASSESSMENT AND PLAN: Uremic syndrome (on peritoneal dialysis at home); resolving with hemodialysis. She can be discharged home from renal standpoint. I will check her BMP, phosphorus and magnesium in the morning. Hypertensive chronic kidney disease (ESRD). On Toprol-XL, Norvasc and hydralazine. Anemia in end-stage renal disease. Received 2 units of packed red blood cells. CBC will be checked tomorrow morning. DISPOSITION: The plan is to discharge her tomorrow at lunchtime, if she remains stable. - Exam Vitals: Temp Pulse Resp BP Pulse Ox 99.2 F 81 16 148/91 91 08/01/18 19:03 08/01/18 19:03 08/01/18 20:21 08/01/18 19:03 08/01/18 20:21 Exam: xx - Assessment and Plan (1) Uremia Current Visit: Yes Status: Acute (2) Hypertensive CKD, ESRD on dialysis Current Visit: Yes Status: Acute (3) ESRD on peritoneal dialysis Current Visit: Yes Status: Chronic (4) Anemia in ESRD (end-stage renal disease) Current Visit: Yes Status: Acute - Time Spent with Patient Total time spent is greater than 50% in coordination of care (as documented) at patient's floor/unit and/or counseling patient: 25 - 35 minutes Plan of Care Discussed with: patient Internal Medicine: Result - Labs CBC & Chem 7: 08/01/18 16:33 08/01/18 04:00 Labs: Short CBC 08/01/18 08/01/18 Range/Units 04:00 16:33 WBC 5.9 (4.3-11.1) K/mcL Hgb 6.6 L 8.8 L D (11.5-15.4) g/dL Hct 20.0 L 27.0 L (35.3-44.9) % Plt Count 120 L (140-400) K/mcL BMP 08/01/18 04:00 Sodium 143 Potassium 4.3 Chloride 98 Carbon Dioxide 21 L BUN 82 H Creatinine 19.35 H Glucose 83 Calcium 7.5 L - ABG Interpretation ABG results: PT/INR, D-dimer PT 12.7 Seconds (9.4-12.1) H 07/31/18 14:19 - Impressions Impressions Guidance Ultrasound 08/01/18 00:00 IMPRESSION: 1. Occluded right internal jugular vein. 2. Left internal jugular vein tunneled dialysis catheter placement as discussed above. D/ / Vito Chaves MD / Vito Chaves MD Interpreting Provider: Vito Chaves MD Guidance Ultrasound 08/01/18 00:00 IMPRESSION: 1. Occluded right internal jugular vein. 2. Left internal jugular vein tunneled dialysis catheter placement as discussed above. D/ / Vito Chaves MD / Vito Chaves MD Interpreting Provider: Vito Chaves MD Insertion Tunneled Catheter 08/01/18 00:00 IMPRESSION: 1. Occluded right internal jugular vein. 2. Left internal jugular vein tunneled dialysis catheter placement as discussed above. D/ / Vito Chaves MD / Vito Chaves MD Interpreting Provider: Vito Chaves MD Vena Cavagram, [place] 08/01/18 00:00 IMPRESSION: 1. Occluded right internal jugular vein. 2. Left internal jugular vein tunneled dialysis catheter placement as discussed above. D/ / Vito Chaves MD / Vito Chaves MD Interpreting Provider: Vito Chaves MD Consult Discharge Plan - Plan Referrals: NONE,PCP [Primary Care Provider] -
[2018-08-02] MEDS: *HR* Heparin 5,000 UNIT/ML VIAL SQ SCH (04:55)
[2018-08-02 05:22] LABS: Hematocrit 24.6 % (35.3-44.9); Mean Corpuscular HGB Conc 32.5 g/dL (31.6-35.5); Mean Corpuscular Hemoglobin 30.8 pg (28.0-33.3); Mean Corpuscular Volume 94.6 fL (83.0-100.0); Platelet Count 111 K/mcL (140-400); Red Cell Distribution Width 17.9 % (11.5-14.5)
[2018-08-02 05:41] LABS: Calcium 7.8 mg/dL (8.6-10.3); Magnesium 1.9 mg/dL (1.6-2.6); Phosphorous 7.1 mg/dL (2.7-4.5); Potassium 4.1 mEq/L (3.5-5.1)
--- NOTE | 2018-08-02 07:09 | Nephrology Progress Note ---
Date of Encounter: 08/02/18 Time of Encounter: 10:30 - Assessment and Plan (1) ESRD (end stage renal disease) Status: Chronic HD orders in place for today to provide more clearance. Okay to d/c from a Nephro perspective. I will defer to her outside seam sewer on arranging for an outpt PD catheter removal, as an outpt. Thank you (2) Anemia in ESRD (end-stage renal disease) Status: Chronic (3) H/O kidney transplant Status: Chronic (4) Hypertension Status: Chronic Qualifiers: Hypertension type: essential hypertension Qualified Code(s): I10 - Essential (primary) hypertension Subjective Principal diagnosis: ESRD Interval history: Pt was s/e and she reported feeling relatively well. She did not affirm active N/V/D. Objective - Vital Signs Vital signs: Vital Signs Temp Pulse Resp BP Pulse Ox 08/02/18 03:58 99.1 F 85 16 126/73 90 08/02/18 00:05 100.1 F H 79 16 131/68 91 08/01/18 20:21 16 91 08/01/18 19:03 99.2 F 81 16 148/91 91 08/01/18 16:30 97.4 F L 73 18 159/95 93 08/01/18 15:58 97.6 F 18 158/104 08/01/18 15:40 153/97 08/01/18 15:25 146/97 08/01/18 15:10 150/96 08/01/18 14:55 157/100 08/01/18 14:40 155/97 08/01/18 14:25 142/91 08/01/18 14:10 132/86 08/01/18 13:55 140/87 08/01/18 13:50 97.6 F 73 18 142/83 08/01/18 13:40 141/82 08/01/18 13:35 97.7 F 76 16 134/85 08/01/18 13:25 152/94 08/01/18 13:10 153/100 08/01/18 12:55 98.2 F 82 18 150/94 08/01/18 12:40 98 F 16 156/98 08/01/18 11:56 83 139/93 91 08/01/18 11:51 81 144/88 89 08/01/18 11:47 83 149/96 90 08/01/18 11:42 87 150/98 95 08/01/18 11:36 87 138/87 96 08/01/18 11:32 74 145/97 94 08/01/18 11:30 82 144/94 93 08/01/18 10:34 91 08/01/18 10:29 98.6 F 84 18 151/89 94 08/01/18 10:26 98.5 F 84 18 148/94 08/01/18 07:41 98.2 F 82 18 157/93 91 Intake and Output 08/01/18 08/01/18 08/02/18 15:59 23:59 07:59 Intake Total 1540 / 1540 270 / 270 120 / 120 Output Total 1949 Balance -410 / -410 270 / 270 120 / 120 Intake: Oral 240 / 240 270 / 270 120 / 120 Blood Product 700 / 700 Rbcs Leuko Poor As-1 Unit 350 / 350 [id number] Rbcs Leuko Poor As-3 Ph Unit 350 / 350 [id number] Intake, Rinseback and Flushes 600 / 600 Output: Total Dialysis (HD) Output 1949 Other: Meal Lunch Dinner Percent of Meal Consumed 50% 90% # Voids 2 Weight 108.4 kg Hemodialysis Net Fluid Removed 1000 (mL) Patient Weight 08/02/18 23:59 Weight 108.4 kg - General Appearance Exam: General appearance: well-developed, well-nourished EENT: ATNC, PERRL, mucous membranes moist Neck: supple Respiratory: clear Cardiology: edema (minimal trace ankle edema b/l), regular rate, regular rhythm, normal S1, normal S2 Gastrointestinal: normoactive bowel sounds, no tenderness Additional Comments: scar in the right infraclavicular region (from prior Permacath she said). Left UE AVG without any thrill or bruit. Neurologic: no focal deficit, no asterixis, alert and oriented x3 Musculoskeletal: no deformities, no erythema, no cyanosis Psychiatric: mood/affect appropriate, cooperative - Lab 08/02/18 04:55 08/02/18 04:55 Most recent lab results Calcium 7.8 mg/dL (8.6-10.3) L 08/02/18 04:55 Phosphorus 7.1 mg/dL (2.7-4.5) H 08/02/18 04:55 Magnesium 1.9 mg/dL (1.6-2.6) 08/02/18 04:55 Consult Discharge Plan - Plan Instructions: Acute Kidney Injury (DC), Anemia (GEN), End-Stage Kidney Disease (DC) Referrals: Walter Bell DO [Partnered Physician] - 08/10/18 2:00 pm
[2018-08-02] MEDS: Budesonide/Formoterol 80/4.5 MDI IH SCH (07:46)
[2018-08-02] MEDS: FLUoxetine 20 MG CAPSULE PO SCH (09:01)
[2018-08-02] MEDS: Sucralfate 1 GM TABLET PO SCH ×2 (09:02→12:45)
[2018-08-02] MEDS: hydrALAZINE 25 MG TABLET PO SCH (09:02)
[2018-08-02] MEDS: Vitamin B Complex/Vit C/Vit E 1 EACH TABLET PO SCH (09:02)
[2018-08-02] MEDS: Cholecalciferol (D-3) 1,000 UNIT TABLET PO SCH (09:02)
[2018-08-02] MEDS: Metoprolol XL (24 HR) Succ 25 MG TAB.ER.24H PO SCH (09:02)
[2018-08-02] MEDS: amLODIPine 5 MG TABLET PO SCH (09:02)
[2018-08-02] MEDS: Furosemide 40 MG TABLET PO SCH (09:02)
--- NOTE | 2018-08-02 11:04 | Discharge Summary ---
- NOTES TO OUTPATIENT PROVIDER Notes to Outpatient Provider: Patient with a history of end-stage renal disease previously on peritoneal dialysis was admitted here with uremic syndrome and was switched to hemodialysis per nephrology recommendations. She has a permacath inserted and has outpatient hemodialysis care set up. She does have chronic anemia which is being managed by nephrology as outpatient. She is stable to be discharged today and will go for hemodialysis as outpatient beginning on Tuesday. Orders not resulted at time of discharge: Pending orders 08/01/18 07:20 Red Blood Cells [BBK] Stat Type and Screen [BBK] Stat 08/03/18 04:00 Basic Metabolic Panel AM 0400 CBC no Diff [Complete Blood Count w/o Diff] [HEME] AM 04008/04/18 04:00 Basic Metabolic Panel AM 0400 CBC no Diff [Complete Blood Count w/o Diff] [HEME] AM 04008/05/18 04:00 Basic Metabolic Panel AM 0400 CBC no Diff [Complete Blood Count w/o Diff] [HEME] AM 04008/06/18 04:00 Basic Metabolic Panel AM 0400 CBC no Diff [Complete Blood Count w/o Diff] [HEME] AM 0400 08/07/18 04:00 Basic Metabolic Panel AM 0400 CBC no Diff [Complete Blood Count w/o Diff] [HEME] AM 04008/08/18 04:00 Basic Metabolic Panel AM 0400 CBC no Diff [Complete Blood Count w/o Diff] [HEME] AM 0400 Date of Encounter: 08/02/18 Time of Encounter: 10:40 - Discharge Diagnosis (1) Uremia Priority: Primary Status: Acute (2) ESRD on peritoneal dialysis Priority: Secondary Status: Chronic (3) Anemia in ESRD (end-stage renal disease) Priority: Secondary Status: Chronic (4) Hypertensive CKD, ESRD on dialysis Priority: Secondary Status: Chronic Hospital course: Ms. Rodgers is a 52 year old female Patient with a history of end-stage renal disease previously on peritoneal dialysis was admitted here with uremic syndrome and was switched to hemodialysis per nephrology recommendations. She has a permacath inserted and has outpatient hemodialysis care set up. She does have chronic anemia which is being managed by nephrology as outpatient. She did receive 2 units of PRBC transfusion here as her hemoglobin was 6.6. Today her hemoglobin is 8. She will follow up with her filling mixer for further management. She is stable to be discharged today and will go for hemodialysis as outpatient beginning on Tuesday. Discharge discussed with: patient, nurse, qa consultant - Time Spent with Patient Total time spent providing and/or coordinating discharge services: Time spent: Less than 30 minutes (25 min) - Discharge Medications Prescriptions: Continue RX: Aspirin [Lo-Dose Aspirin EC] 81 mg PO DAILY RX: Sodium Bicarbonate 1,950 mg PO BID RX: Simvastatin [Zocor] 40 mg PO DAILY RX: Omeprazole [PriLOSEC] 40 mg PO BID RX: Gemfibrozil [Lopid] 600 mg PO BID RX: amLODIPine [Norvasc] 5 mg PO BID RX: hydrALAZINE [HydrALAZINE] 25 mg PO BID RX: Albuterol Sulfate [Albuterol Inhaler] 0 puff IH Q4HR PRN PRN Reason: SOB/WHEEZING RX: Budesonide/Formoterol 80/4.5 [Symbicort 80/4.5] 2 puff IH BID RX: Calcium Carbonate [Tums] 1,500 mg PO TIDWM RX: Cholecalciferol (D-3) [Vitamin D] 5,000 unit PO QWEEK RX: Cinacalcet HCl [Sensipar] 60 mg PO DAILY RX: Dicyclomine [Bentyl] 10 mg PO TID RX: FLUoxetine HCl [Prozac] 40 mg PO DAILY RX: Furosemide [Lasix] 40 mg PO DAILY RX: Levothyroxine [Synthroid] 88 mcg PO 0630 RX: Metoclopramide [Reglan] 10 mg PO TID RX: Metoprolol Succinate [Toprol Xl] 25 mg PO DAILY RX: Sucralfate [Carafate] 1 gm PO TIDAC RX: Vitamin B Complex [Balanced B-50] 1 each PO DAILY Home Medications: RX: Aspirin [Lo-Dose Aspirin EC] 81 mg PO DAILY 06/19/16 [History] RX: Gemfibrozil [Lopid] 600 mg PO BID 06/19/16 [History] RX: Omeprazole [PriLOSEC] 40 mg PO BID 06/19/16 [History] RX: Simvastatin [Zocor] 40 mg PO DAILY 06/19/16 [History] RX: Sodium Bicarbonate 1,950 mg PO BID 06/19/16 [History] RX: amLODIPine [Norvasc] 5 mg PO BID 07/21/18 [History] RX: hydrALAZINE [HydrALAZINE] 25 mg PO BID 07/21/18 [History] RX: Albuterol Sulfate [Albuterol Inhaler] 0 puff IH Q4HR PRN 07/31/18 [History] RX: Budesonide/Formoterol 80/4.5 [Symbicort 80/4.5] 2 puff IH BID 07/31/18 [History] RX: Calcium Carbonate [Tums] 1,500 mg PO TIDWM 07/31/18 [History] RX: Cholecalciferol (D-3) [Vitamin D] 5,000 unit PO QWEEK 07/31/18 [History] RX: Cinacalcet HCl [Sensipar] 60 mg PO DAILY 07/31/18 [History] RX: Dicyclomine [Bentyl] 10 mg PO TID 07/31/18 [History] RX: FLUoxetine HCl [Prozac] 40 mg PO DAILY 07/31/18 [History] RX: Furosemide [Lasix] 40 mg PO DAILY 07/31/18 [History] RX: Levothyroxine [Synthroid] 88 mcg PO 0630 07/31/18 [History] RX: Metoclopramide [Reglan] 10 mg PO TID 07/31/18 [History] RX: Metoprolol Succinate [Toprol Xl] 25 mg PO DAILY 07/31/18 [History] RX: Sucralfate [Carafate] 1 gm PO TIDAC 07/31/18 [History] RX: Vitamin B Complex [Balanced B-50] 1 each PO DAILY 07/31/18 [History] Allergies/Adverse Reactions: Allergy/AdvReac Type Severity Reaction Status Date / Time diphenhydramine Allergy Unconscious Verified 07/31/18 13:43 [From Deb] Date of admission: 07/31/18 18:42 Primary care physician: PCP NONE Consults: 07/31/18 14:05 Consult to Invasive Line Access Team [CONS] Stat Reason for Consult: limited IV access Line Type: Midline PICC line indications: Limited vascular access 07/31/18 14:19 Consult to Nephrology [CONS] Stat Consulting Provider: [facility] [place]/CARIE/NEHAL/MARIBELL Reason for Consult: HD Call Completed: Yes 07/31/18 14:55 Consult to Interventional Radiology [CONS] Stat Consulting Provider: Radiology Interventional Cols Reason for Consult: Perma cath Call Completed: Yes 07/31/18 15:43 Consult to Invasive Line Access Team [CONS] Routine Reason for Consult: limited vascular access with multiple critical labs and need for dialysis line Line Type: EPIV 08/01/18 06:28 Consult to Interventional Radiology [CONS] Routine Consulting Provider: Radiology Interventional Cols Reason for Consult: Please evaluate for placement of a Permacath. Call Completed: Yes 08/01/18 06:30 Consult to Dialysis [CONS] DAILY 08/01/18 06:31 Consult to Appraiser Personal Property [CONS] Routine Reason for SW Consult: Please arrange for an HD chair time (she is being converted from PD to HD). Thank you. 08/01/18 12:28 Consult to Nurse Navigator [CONS] Routine Comment: HD 08/02/18 06:30 Consult to Dialysis [CONS] DAILY 08/03/18 06:30 Consult to Dialysis [CONS] DAILY Discharging clinician: Hal Pimentel Anticipated date of discharge: 08/02/18 - Constitutional Vitals: Temp Pulse Resp BP Pulse Ox 97.7 F 85 18 155/95 90 08/02/18 09:30 08/02/18 07:44 08/02/18 09:30 08/02/18 10:45 08/02/18 07:50 General appearance: Present: cooperative, A&O X 3, no acute distress, answers questions appropriately Exam: . - Respiratory Respiratory exam: Present: CTAB. Absent: accessory muscle use, rales, rhonchi, wheezes - Cardiovascular Cardiovascular exam: Present: RRR, +S1, +S2. Absent: diastolic murmur, gallop, rubs, systolic murmur - GI/Abdominal GI/Abdominal exam: Present: normal bowel sounds, soft, no peritoneal signs. Absent: distended, tenderness - Patient Status Disposition: Home, Self-Care Condition: Good Functional capacity at discharge: independent ambulation Overall status at discharge: patient is back to baseline - Discharge Instructions Instructions: Acute Kidney Injury (DC), Anemia (GEN), End-Stage Kidney Disease (DC) Follow Up With: Walter Bell DO [Partnered Physician] - 08/10/18 2:00 pm - Diet and Activity Activity: increase activity as tolerated Diet: low fat, low cholesterol, low salt diet, other (renal diet)
[2018-08-02 14:21] VITALS: BP 153/101
[2018-08-03] MEDS ORDERED: Cholecalciferol (D-3) 1,000 UNIT TABLET PO SCH (09:00)
== END 2018-08-02 13:05 | disposition home or self-care (01) | DRG 682 ==
LOC: 2ANU 13:22 → EMEROOARM 13:22 → 2ANU 18:16 → SUATTDRO 18:42
PROVIDERS: ADMIT Hospitalist; ATTEND Internal Medicine